=== PATIENT | female | born 1980 | race Caucasian/White ===

== ENCOUNTER 2016-04-21 00:38 | Inpatient (IN) | payer OTHER ==
[~2016-04-21] VITALS: Ht 144.8 cm; Wt 59.0 kg
--- NOTE | ~2016-04-21 | HC ---
[facility] [place] [address] CONSULTATION Name: JEFE DIAZ Room #: 423-1 ADM IN M.R.#: [id number] Admission: 04/21/16 Attend Phys: Rebeca Arciniega MD Discharge: Date of : 76 Report #: [id number] THIS REPORT FOR: //name// CC: Rebeca Shenore Talbert REASON FOR CONSULTATION: I was asked to evaluate concerning fever. HISTORY OF PRESENT ILLNESS: The patient is a 35-year-old with spina bifida and complicated pelvis with radiation therapy for sarcoma ____, required a cystectomy and had a urostomy through her umbilicus for many years. She then developed recurring urinary tract infections and in February was at [facility] where she underwent revision of her urostomy to a standard small bowel urostomy along with hysterectomy. No complications were noted from this. She was hospitalized for about 10 days and then went to rehabilitation and then home. It is noted that she had had bacteriuria since her hospitalization. Two days prior to her admission, she developed increased nausea, vomiting, anorexia, low grade fever. Hospitalized after being on doxycycline for 2 days when that was not helping her. No cough or sputum production. No diarrhea. She does have a colostomy. ALLERGIES: LATEX, LEVOFLOXACIN, GENTAMICIN, SULFA. MEDICATIONS: As noted on her JUN, now on Zosyn and metronidazole. PAST MEDICAL HISTORY, FAMILY HISTORY AND SOCIAL HISTORY: Unchanged from previous consultations and that of her history and physical. REVIEW OF SYSTEMS: As noted above. PHYSICAL EXAMINATION: VITAL SIGNS: She is afebrile, hemodynamically stable. GENERAL: She is alert and cooperative and pleasant, in no acute distress. SKIN: With a small blister to her right heel. No surrounding cellulitis. HEENT: Unremarkable. CHEST: Clear. HEART: Regular. ABDOMEN: Soft, tender in the lower abdomen. Her mid abdominal incision was well approximated. Her urostomy was unremarkable. Her colostomy was unremarkable. She has changes of her spina bifida. LABORATORY STUDIES: Sodium 144, potassium 3.7, bicarbonate of 18, creatinine 0.3, BUN 4. Hemoglobin 8.8, white count 5.5, platelet count 287,000. 13% monocytes, 5% eosinophils, 51% neutrophils. Urinalysis; few wbc's, moderate bacteria. Urine culture with E. coli. ESBL producing organisms sensitive to imipenem, Zosyn, tobramycin, Augmentin, amikacin. Blood cultures negative. Chest x-ray, no acute infiltrates. [address] [address] CONSULTATION Name: JEFE DIAZ Room #: 423-1 ADM IN M.R.#: [id number] Admission: 04/21/16 Attend Phys: Rebeca Arciniega MD Discharge: Date of : 78 Report #: [id number] IMPRESSION: A 35-year-old with spina bifida who is 2 months out from pelvic surgery and ____ urostomy. Now with febrile illness associated with GI upset, back pain consistent with urinary tract infection, although may be related to postoperative complications. PLAN: Recommend continuing current antibiotics with Zosyn and metronidazole. The metronidazole helps with her bowel function while on antibiotics. We will image her abdomen and pelvis with a CAT scan. We will also obtain a urine sample by catheterizing her urostomy. <ELECTRONICALLY SIGNED> By: Ga Nowak MD 04/24/16 0918 1612 2250 Ga Nowak MD /nt
[~2016-04-21 00:38] MED LIST: ACETAMINOPHEN325 M1 PO; ADVAIR HFA 1112 UNIT INH; ALLERGY10 MG PO; APAP500 PO; AZTREONAM1 GM IV; BACTRIM DS TAB1 EACH PO; BENTYL10 MG PO; BONIVA150 MG PO; BUTALB-ACETAMI1 EACH PO; CARDIZEM CD 18180 M3 PO; CATHFLO ACT2 MG/VIA1 IV; CHOLESTYRAMINE P4 GM PO; CIPRO500 MG PO; COMBIVENT INH; COMBIVENT RESPIM4 GM INH; D-20002000 UNIT PO; DILTIAZEM 24HR240 M1 PO; DILTIAZEM 24HR240 MG PO; DIPHENHIST50 MG PO; DUONEB 2.5-0.5 M3 ML INH; FIORICET 50-321 EACH PO; FISH OIL + D31 EACH; FISH OIL 1,001000 M2 PO; FLAGYL500 MG PO; FOSAMAX 35 MG35 MG PO; FOSAMAX 70 MG T70 M1 PO; FOSAMAX 70 MG T70 MG PO; IBUPROFEN 200200 M1 PO; IBUPROFEN 600600 M1 PO; INVANZ 1GM/NS 101 GM IV; INVANZ IV; IRON325 PO; KEPPRA 500 MG500 M1 PO; KEPPRA750 MG PO; MAXIPIME 1 GM/D51 G1 IVPB; MULTIVITAMINS PO; NORCO 5-325 TA1 EACH PO; PERCOCET 5-3251 EACH PO; PROTONIX40 M2 PO; SINGULAIR 10 MG10 M1 PO; TAMSULOSIN HCL0.4 MG PO; VANCOMYCIN HCL 11 G2 IV; VENTOLIN17 GM INH; ZOFRAN 4 MG ORAL4 MG PO; ZOFRAN ODT4 MG PO; ZOFRAN4 MG PO
[2016-04-21 00:43] VITALS: BP 124/83
[2016-04-21 01:30] LABS: HEMATOCRIT 35.5 % (37.0-47.0); HEMOGLOBIN 11.2 gm/dL (12.0-15.0); MCH 24.9 pg (26.0-34.0); MCHC 31.6 % (28.0-37.0); MCV 78.7 fL (80.0-100.0); PLATELET COUNT 358 thou/uL (150-400); RBC 4.51 mil/uL (4.20-5.00); RDW 15.4 % (10.5-14.5); WBC 11.5 thou/uL (4.0-11.0)
[2016-04-21 01:31] LABS: MANUAL DIFF YES
[2016-04-21 01:40] LABS: ALBUMIN 3.6 g/dL (3.4-5.0); CALCIUM 8.6 mg/dL (8.5-10.1); CREATININE 0.5 mg/dL (0.6-1.3); DIRECT BILIRUBIN 0.1 mg/dL (<0.1-0.3); TOTAL BILIRUBIN 0.4 mg/dL (<0.1-1.0); TOTAL PROTEIN 8.2 g/dL (6.4-8.2)
[2016-04-21 01:46] LABS: POTASSIUM 2.9 mmol/L (3.5-5.1)
[2016-04-21 02:17] LABS: TOTAL CELL COUNT 100
[2016-04-21 02:28] LABS: URINE BILIRUBIN 1+ (Negative); URINE BLOOD TRACE (Negative); URINE GLUCOSE-RANDOM* NEGATIVE (Negative); URINE KETONES 2+ (Negative); URINE NITRITE POSITIVE (Negative); URINE PROTEIN (DIPSTICK) TRACE (Negative); URINE SPECIFIC GRAVITY 1.025 (1.003-1.035); URINE UROBILINOGEN 0.2 E.U./dl (0.2-1.0)
[2016-04-21 02:34] LABS: ICTOTEST (BILI CONFIRMATORY) Positive (Negative)
[2016-04-21 02:47] LABS: SQUAMOUS None Seen /LPF (0-3); URINE COLOR BROWN
[2016-04-21 02:48] LABS: CALCIUM OXALATE 0-3 Few /LPF (None Seen); CASTS None Seen /LPF (None Seen); CRYSTALS None Seen /LPF (None Seen); TRANSITIONAL EPITHEL CELL 4-10 Moderate /LPF (None Seen); URINE RBC 0-2 Rare /HPF (0-2); URINE WBC 6-15 Few /HPF (0-5)
[2016-04-21 04:20] VITALS: BP 96/57
[2016-04-21 07:33] VITALS: BP 115/68; BP 93/58
[2016-04-21 16:24] VITALS: BP 98/63
[2016-04-21 20:00] VITALS: BP 109/72
[2016-04-22 04:00] VITALS: BP 103/62
[2016-04-22 06:02] LABS: HEMATOCRIT 27.9 % (37.0-47.0); MCH 25.3 pg (26.0-34.0); MCHC 31.1 % (28.0-37.0); MCV 81.5 fL (80.0-100.0); RBC 3.43 mil/uL (4.20-5.00); RDW 15.7 % (10.5-14.5); WBC 7.2 thou/uL (4.0-11.0)
[2016-04-22 06:16] LABS: CALCIUM 7.5 mg/dL (8.5-10.1); CREATININE 0.3 mg/dL (0.6-1.3); POTASSIUM 3.7 mmol/L (3.5-5.1)
[2016-04-22 06:22] LABS: HEMOGLOBIN 8.7 gm/dL (12.0-15.0)
[2016-04-22 07:53] VITALS: BP 108/68
[2016-04-22 15:49] VITALS: BP 118/71
[2016-04-22 20:00] VITALS: BP 118/78
[2016-04-23 04:00] VITALS: BP 105/66
[2016-04-23 05:27] LABS: HEMATOCRIT 27.4 % (37.0-47.0); HEMOGLOBIN 8.8 gm/dL (12.0-15.0); MCH 25.4 pg (26.0-34.0); MCV 79.1 fL (80.0-100.0); PLATELET COUNT 287 thou/uL (150-400); RBC 3.46 mil/uL (4.20-5.00); RDW 15.7 % (10.5-14.5); WBC 5.5 thou/uL (4.0-11.0)
[2016-04-23 05:40] LABS: MANUAL DIFF YES
[2016-04-23 06:04] LABS: CALCIUM 7.8 mg/dL (8.5-10.1); CREATININE 0.3 mg/dL (0.6-1.3); MAGNESIUM 1.7 mg/dL (1.8-2.4); POTASSIUM 3.4 mmol/L (3.5-5.1)
[2016-04-23 07:39] LABS: ABSOLUTE NEUTROPHILS 2.8 thou/uL (1.4-8.2); ANISOCYTOSIS SLIGHT; MICROCYTES SLIGHT; TOTAL CELL COUNT 100
[2016-04-23 07:44] VITALS: BP 118/81
[2016-04-23 10:59] LABS: MAGNESIUM 1.5 mg/dL (1.8-2.4); POTASSIUM 3.7 mmol/L (3.5-5.1)
[2016-04-23 17:02] VITALS: BP 123/82
[2016-04-23 17:44] LABS: URINE BILIRUBIN NEGATIVE (Negative); URINE BLOOD NEGATIVE (Negative); URINE COLOR YELLOW; URINE GLUCOSE-RANDOM* NEGATIVE (Negative); URINE KETONES NEGATIVE (Negative); URINE LEUKOCYTES-REFLEX NEGATIVE (Negative); URINE PROTEIN (DIPSTICK) NEGATIVE (Negative); URINE UROBILINOGEN 0.2 E.U./dl (0.2-1.0)
[2016-04-23 20:00] VITALS: BP 118/79
[2016-04-24 04:30] VITALS: BP 120/73
[2016-04-24 05:25] LABS: HEMATOCRIT 28.1 % (37.0-47.0); HEMOGLOBIN 9.1 gm/dL (12.0-15.0); MCH 25.5 pg (26.0-34.0); MCHC 32.2 % (28.0-37.0); MCV 79.1 fL (80.0-100.0); PLATELET COUNT 338 thou/uL (150-400); RBC 3.55 mil/uL (4.20-5.00); RDW 15.9 % (10.5-14.5); WBC 5.7 thou/uL (4.0-11.0)
[2016-04-24 05:36] LABS: MANUAL DIFF YES
[2016-04-24 05:46] LABS: CALCIUM 7.9 mg/dL (8.5-10.1); CREATININE 0.4 mg/dL (0.6-1.3); MAGNESIUM 1.7 mg/dL (1.8-2.4); POTASSIUM 3.2 mmol/L (3.5-5.1)
[2016-04-24 06:21] LABS: ABSOLUTE NEUTROPHILS 3.4 thou/uL (1.4-8.2); TOTAL CELL COUNT 100
[2016-04-24 07:31] VITALS: BP 116/70
[2016-04-24 15:36] LABS: MAGNESIUM 1.8 mg/dL (1.8-2.4)
[2016-04-24 16:10] VITALS: BP 122/73
[2016-04-24 20:00] VITALS: BP 113/74
[2016-04-25 04:00] VITALS: BP 101/63
[2016-04-25 05:12] LABS: CALCIUM 8.4 mg/dL (8.5-10.1); CREATININE 0.4 mg/dL (0.6-1.3); MAGNESIUM 1.9 mg/dL (1.8-2.4); POTASSIUM 4.3 mmol/L (3.5-5.1)
[2016-04-25 08:36] VITALS: BP 101/70
[2016-04-25] MEDS ORDERED: VANCOMYCIN100 MG/ML PO (12:32)
[2016-04-25] MEDS ORDERED: AUGMENTIN 875-1 EACH PO (12:32)
[2016-04-25 12:41] VITALS: BP 101/70
== END 2016-04-25 17:21 | disposition home health service (06) | DRG 690 ==
LOC: ER 00:38 → 4E 03:08 → EROBS 03:08 → 4E 03:37
PROVIDERS: Emergency Medicine; Hospitalist; Internal Medicine; Specialist
PROC: 0HDMXZZ Extraction of Right Foot Skin, External Approach (ICD-10-PCS; principal; 2016-04-23)
DX: N39.0 Urinary tract infection, site not specified (principal); G82.20 Paraplegia, unspecified; A04.7 Enterocolitis due to Clostridium difficile; B96.20 Unspecified Escherichia coli [E. coli] as the cause of diseases classified elsewhere; I10 Essential (primary) hypertension; J45.909 Unspecified asthma, uncomplicated; N31.9 Neuromuscular dysfunction of bladder, unspecified; E87.6 Hypokalemia; R51 Headache; M25.774 Osteophyte, right foot; K80.20 Calculus of gallbladder without cholecystitis without obstruction; N83.202 Unspecified ovarian cyst, left side; D63.8 Anemia in other chronic diseases classified elsewhere; Z96.0 Presence of urogenital implants; I70.90 Unspecified atherosclerosis; L89.612 Pressure ulcer of right heel, stage 2; R60.0 Localized edema; G40.909 Epilepsy, unspecified, not intractable, without status epilepticus; Q05.9 Spina bifida, unspecified; Z98.890 Other specified postprocedural states; Z93.3 Colostomy status; Z86.14 Personal history of Methicillin resistant Staphylococcus aureus infection; Z92.3 Personal history of irradiation; Z88.1 Allergy status to other antibiotic agents; Z88.2 Allergy status to sulfonamides; Z89.422 Acquired absence of other left toe(s); Z91.040 Latex allergy status; Z28.21 Immunization not carried out because of patient refusal
CPT/HCPCS: 10183

== ENCOUNTER 2016-05-11 21:51 | Inpatient (IN) | payer OTHER ==
[~2016-05-11] VITALS: Ht 147.3 cm; Wt 59.0 kg
--- NOTE | ~2016-05-11 | HC ---
[facility] [place] [address] CONSULTATION Name: JEFE DIAZ Room #: 423-1 ADM IN M.R.#: [id number] Admission: 05/12/16 Attend Phys: Prashant Tarango MD Discharge: Date of : 76 Report #: [id number] THIS REPORT FOR: //name// CC: Prashant Duarte DATE OF CONSULTATION: 05/12/2016 ATTENDING PHYSICIAN: Prashant Tarango M.D. REASON FOR CONSULTATION: Right upper quadrant abdominal pain. HISTORY OF PRESENT ILLNESS: This is a 35-year-old female patient with a history of spina bifida and paraplegia who has had difficulty with right upper quadrant and right flank pain as well as nausea and vomiting. She underwent creation of an ileal conduit at the [facility] in February 2016, and since that time, she has required numerous antibiotics, which have caused some degree of nausea. She has been admitted for urinary tract infections frequency. At her last admission, she was diagnosed with gallstones; however, during this admission she underwent a CT of the abdomen and pelvis, which showed no gallstones. I have been asked to see the patient for further evaluation and treatment. She does have a complex surgical history, having undergone a recent ileal conduit in February of 2011. Prior to that, she had a urostomy, which she self intubated located at the umbilicus. She also has a colostomy in place. She is wheelchair bound due to her spina bifida. She denies fever or chills. She is uncertain whether the pain is associated with oral intake. PAST MEDICAL HISTORY: Spina bifida, paraplegia, hypertension, seizure disorder, neurogenic bladder, chronic urinary tract infections and headaches. PAST SURGICAL HISTORY: Includes urostomy, ileal conduit, colostomy, numerous back operations, back irradiation for a Dermabond cyst, multiple orthopedic operations, left-sided nephrostomy tube placements for kidney stones. ALLERGIES: LATEX causes anaphylaxis. She is also allergic to Levaquin, which causes a rash and GENTAMICIN. FAMILY HISTORY: Reviewed and noncontributory to this hospitalization. SOCIAL HISTORY: The patient denies any use of tobacco, alcohol or illicit drugs. She lives independently. REVIEW OF SYSTEMS: As per history of present illness. In addition: GENERAL: The patient is wheelchair bound. She denies unintentional weight loss. Denies fever or chills. HEENT: Denies changes in taste, vision, hearing or smell. [address] [address] CONSULTATION Name: JEFE DIAZ Room #: [facility] IN ..#: [id number] Admission: 05/12/16 Attend Phys: Prashant Tarango MD Discharge: Date of : 78 Report #: [id number] RESPIRATORY: Denies shortness of breath, COPD or asthma. CARDIOVASCULAR: Denies chest pain or palpitations. GASTROINTESTINAL: As per history of present illness. Her colostomy has been functional. GENITOURINARY: Ileal conduit in place since February 2016 (the electronic medical record reports showed March 2016). NEUROLOGIC: History of spina bifida and paraplegia. PSYCHIATRIC: Denies depression, anxiety or suicidal ideations. SKIN/INTEGUMENTARY: Denies new skin lesions, rashes or moles. Denies jaundice. ENDOCRINE: Denies polydipsia, polyuria, heat or cold intolerance. HEMATOLOGIC: Denies easy bleeding or bruising. Denies anemia. All other review of systems is negative. PHYSICAL EXAMINATION: VITAL SIGNS: Temperature 97.5, blood pressure 124/77, pulse 100-125, respirations 18. GENERAL: This is a 35-year-old female patient in no acute distress. She is alert and oriented x 4. She is in no acute distress. HEENT: Atraumatic, normocephalic with moist mucosal membranes. Oropharynx is clear. NECK: Supple. Trachea is midline. CHEST: Clear bilaterally. CARDIOVASCULAR: Sinus tachycardia, S1, S2. ABDOMEN: Soft and mildly tender to palpation in the right upper quadrant. She has a negative Laguerre's sign, no rebound or guarding. No palpable masses. A midline incisional scar is seen. She has no overlying erythema or edema. Her ileal conduit is intact and functional on the right. In the left abdomen, her colostomy is pink, patent and functional. GENITOURINARY: Deferred. EXTREMITIES: No cyanosis. NEUROLOGIC: Cranial nerves 2-12 grossly intact. PSYCHIATRIC: Normal mood and affect. SKIN/INTEGUMENTARY: No acute inflammatory changes, rashes, lesions or jaundice is present. LABORATORY DATA: CBC from last night shows a white blood cell count of 11.1, hemoglobin 10.0, hematocrit 31.4 and platelets 394 with 82% segmented neutrophils. Her comprehensive metabolic profile from this morning shows a sodium of 139, potassium 3.6, chloride 109, CO2 21, BUN 14, creatinine 0.5 and glucose 90 with normal liver function tests. Her lipase yesterday was normal at 80. Lactic acid was 1.1. Urinalysis showed positive nitrites, 2+ ketones, trace glucose, 2+ protein. RADIOLOGIC STUDIES: CT of the abdomen and pelvis without contrast showed cholelithiasis without changes of acute cholecystitis. This was further studies [address] [address] CONSULTATION Name: JEFE DIAZ Room #: 423-1 ADM IN M.R.#: [id number] Admission: 05/12/16 Attend Phys: Prashant Tarango MD Discharge: Date of : 78 Report #: [id number] with an ultrasound, which showed cholelithiasis without sonographic evidence for acute cholecystitis. Her common bile duct was 3.2 mm in size. IMPRESSION AND PLAN: This is a 35-year-old female with a complex medical and surgical history, also with a recent ileal conduit who has right upper quadrant abdominal pain and radiographically evidence for cholelithiasis without evidence for acute cholecystitis. Her symptoms do not always occur postprandially, and as such, she has a typical biliary colic. She does have pain in the right upper quadrant and right flank, which is consistent with symptomatic cholelithiasis. The pathophysiology and natural history of cholelithiasis was discussed in detail with the patient. In addition, we discussed the treatment alternatives and surgical options. We also discussed the risks, benefits and expectations of cholecystectomy. The patient is not in favor of surgery at this time and would like to try medical therapy given her recent operations and a complex surgical history. This is a reasonable option. She will be placed on ursodiol to help dissolve the gallstones. The risks, benefits and expectations of medical therapy were discussed with the patient as well. Should she require cholecystectomy or develop acute cholecystitis, this would just be served at the [facility] where her ileal conduit was recently performed given its close proximity to the gallbladder. The patient agrees. My recommendation is that she can be seen by General Surgery at [facility] to arrange for this sometime in the future if her medical therapy is ineffective or not well tolerated. The patient understands and agrees. She will take a low fat/no fat diet and will start ursodiol soon. I sincerely appreciate the opportunity to participate and take care of this patient and will leave further recommendations and orders in the electronic medical record as appropriate. Thank you very much. <ELECTRONICALLY SIGNED> By: Marko Duarte MD, FACS 05/13/16 0859 0013 0114 Marko Duarte MD, FACS /nt
--- NOTE | ~2016-05-11 | 2DMMODE ---
[facility] [place] [address] 2 D/M-MODE ECHOCARDIOGRAM Name: JEFE DIAZ Room #: 423-1 ADM IN M.R.#: [id number] Admission: 05/12/16 Attend Phys: Larry Lira Discharge: Date of : 76 Date of Service: 05/14/16 1517 Report #: [id number] THIS REPORT FOR: //name// Transthoracic Echocardiography Ordering physician: Delmy Wray Referring physician: Marko Duarte Theodore M. Hoden, Brianna Broadcast Engineer: MARIAH Mann Indications/History: Tachycardia, HTN. BP: 125 / HR: 135bpm Height: 57in Weight: 129.7lb 80 Study data: M-mode, complete 2D, complete spectral Doppler, and color Doppler. Location: Bedside. Routine. Image quality was adequate. The study was technically limited due to poor acoustic window availability and restricted patient mobility. Intravenous contrast (Definity) was administered. 2D measurements Normal Normal LVID ED 36-57 IVS ED 6-11 LVID ES 23-40 LVPW ED 6-11 LA volume index 16-28 AoRoot diam ED 21-37 LVOT diameter 18-23 Findings: Left ventricle: The cavity size was normal. Wall thickness was normal. Systolic function was normal. The estimated ejection fraction was in the range of 55% to 60%. Wall motion was normal. Right ventricle: The cavity size was normal. Systolic function was normal. Right atrium: The atrium was normal in size. Left atrium: The atrium was normal in size. Aortic valve: Not visualized. Doppler: There was no stenosis. No regurgitation. Peak velocity: 119.8cm/s [address] [address] 2 D/M-MODE ECHOCARDIOGRAM Name: JEFE DIAZ Room #: 423-1 [facility] IN M.R.#: [id number] Admission: 05/12/16 Attend Phys: Prashant JeongIra Mckeonma Larry Discharge: Date of : 76 Date of Service: 05/14/161516 Report #: [id number] ([id number]). Mitral valve: Not visualized. Doppler: There was no evidence for stenosis. No regurgitation. Tricuspid valve: Structurally normal valve. Doppler: There was no evidence for stenosis. No regurgitation. Pulmonic valve: Structurally normal valve. Doppler: There was no evidence for stenosis. No regurgitation. Pericardium: There was no pericardial effusion. Aorta: Aortic root: The aortic root was normal in size. Pulmonary artery: Pressure could not be reliably determined due to minimal or absent tricuspid insufficiency jet, but pulmonary hypertension was not suggested. Diastolic function: The study is not technically sufficient to allow evaluation of LV diastolic function. Systemic veins: Inferior vena cava: The vessel was normal in size; the respirophasic diameter changes were in the normal range (= 50%). Conclusions 1. Technically difficult study. 2. Definity was used for better visualization of endothelial border. 1. Left ventricle: Systolic function was normal. The estimated ejection fraction was in the range of 55% to 60%. Wall motion was normal. 2. Aortic valve: Not visualized. There was no stenosis. No regurgitation. 3. Mitral valve: Not visualized. No regurgitation. 4. Pericardium, extracardiac: There was no pericardial effusion. <ELECTRONICALLY SIGNED> By: Rober Betts MD, [facility] 05/14/16 1714 1517 1714 Rober Betts MD, FACC /gordy
--- NOTE | ~2016-05-11 | EKG ---
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 : 1980 Requested By: Prashant Tarango Order Number: [id number] MD: Rober Betts Measurements Intervals [place] Rate: 114 P: 39 NC: 152 QRS: 38 QRSD: 87 T: 11 QT: 350 QTc: 483 Interpretive Statements Sinus tachycardia Abnormal R-wave progression, early transition Borderline T abnormalities, anterior leads Baseline wander in lead(s) V5 No previous ECG available for comparison Electronically Signed On 05-14-2016 8:54:29 INTERNATIONAL CONTROLLER by Rober Betts [email or web address] <ELECTRONICALLY SIGNED> By: Rober Betts MD, [facility] 05/14/16 0854 1105 1105 Rober Betts MD, [facility] /EPI
--- NOTE | ~2016-05-11 | EKG ---
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: Jake DUBOIS : 1980 Requested By: Delmy Wray Order Number: [id number] MD: Rober Betts Measurements Intervals [place] Rate: 116 P: 34 GA: 149 QRS: 42 QRSD: 80 T: 21 QT: 338 QTc: 470 Interpretive Statements Sinus tachycardia Abnormal R-wave progression, early transition Borderline T abnormalities, anterior leads No previous ECG available for comparison Electronically Signed On 05-14-2016 9:11:19 OSD CLERK by Rober Betts [email or web address] <ELECTRONICALLY SIGNED> By: Rober Betts MD, [facility] 05/14/1611 Rober Betts MD, [facility] /EPI
[~2016-05-11 21:51] MED LIST changes: +AUGMENTIN 875-1 EACH PO; +VANCOMYCIN100 MG/ML PO
[2016-05-11 21:53] VITALS: BP 148/97
[2016-05-11 22:29] LABS: HEMATOCRIT 31.4 % (37.0-47.0); MCH 24.4 pg (26.0-34.0); MCHC 31.9 % (28.0-37.0); MCV 76.4 fL (80.0-100.0); PLATELET COUNT 394 thou/uL (150-400); WBC 11.1 thou/uL (4.0-11.0)
[2016-05-11 22:32] LABS: MANUAL DIFF YES
[2016-05-11 22:36] LABS: CALCIUM 8.8 mg/dL (8.5-10.1); CREATININE 0.6 mg/dL (0.6-1.3); POTASSIUM 3.7 mmol/L (3.5-5.1)
[2016-05-11 22:42] LABS: ALBUMIN 3.8 g/dL (3.4-5.0); TOTAL BILIRUBIN 0.2 mg/dL (<0.1-1.0); TOTAL PROTEIN 8.6 g/dL (6.4-8.2)
[2016-05-11 23:01] LABS: URINE BILIRUBIN NEGATIVE (Negative); URINE BLOOD NEGATIVE (Negative); URINE GLUCOSE-RANDOM* TRACE (Negative); URINE KETONES 2+ (Negative); URINE LEUKOCYTES-REFLEX NEGATIVE (Negative); URINE PROTEIN (DIPSTICK) 2+ (Negative); URINE SPECIFIC GRAVITY 1.015 (1.003-1.035); URINE UROBILINOGEN 0.2 E.U./dl (0.2-1.0)
[2016-05-11 23:17] LABS: URINE COLOR YELLOW/ORANGE
[2016-05-11 23:34] LABS: CASTS None Seen /LPF (None Seen); CRYSTALS None Seen /LPF (None Seen); SQUAMOUS None Seen /LPF (0-3); URINE RBC 0-2 Rare /HPF (0-2); URINE WBC-REFLEX 0-5 Rare /HPF (0-5)
[2016-05-11 23:54] LABS: ABSOLUTE NEUTROPHILS 9.1 thou/uL (1.4-8.2); TOTAL CELL COUNT 100
[2016-05-11 23:55] LABS: ANISOCYTOSIS 3+; MACROCYTES 1+; MICROCYTES 2+
[2016-05-12 02:09] VITALS: BP 123/76
[2016-05-12 07:25] VITALS: BP 124/77
[2016-05-12 09:00] LABS: ALBUMIN 2.8 g/dL (3.4-5.0); CALCIUM 7.8 mg/dL (8.5-10.1); CREATININE 0.5 mg/dL (0.6-1.3); POTASSIUM 3.6 mmol/L (3.5-5.1); TOTAL BILIRUBIN 0.3 mg/dL (<0.1-1.0); TOTAL PROTEIN 6.2 g/dL (6.4-8.2)
[2016-05-12 16:41] VITALS: BP 117/75
[2016-05-12 20:00] VITALS: BP 114/75
[2016-05-13 04:00] VITALS: BP 105/64
[2016-05-13 08:43] VITALS: BP 116/72
[2016-05-13 15:51] VITALS: BP 141/96
[2016-05-13 20:00] VITALS: BP 131/87
[2016-05-14 04:42] VITALS: BP 95/68
[2016-05-14 08:05] VITALS: BP 125/80
[2016-05-14 13:05] VITALS: BP 125/80
[2016-05-14 16:20] VITALS: BP 120/81
[2016-05-14 20:00] VITALS: BP 128/90
[2016-05-15 04:42] VITALS: BP 116/74
[2016-05-15 08:00] VITALS: BP 107/74
[2016-05-15] MEDS ORDERED: NORCO 5-325 TA1 EACH PO (10:24)
[2016-05-15] MEDS ORDERED: FLAGYL500 MG PO (10:24)
[2016-05-15] MEDS ORDERED: AUGMENTIN 875-1 EACH PO (10:24)
[2016-05-15] MEDS ORDERED: CARDIZEM CD240 MG PO (10:24)
[2016-05-15] MEDS ORDERED: XANAX 0.5 MG0.5 MG PO (10:24)
[2016-05-15] MEDS ORDERED: URSODIOL300 MG PO (10:49)
== END 2016-05-15 17:20 | disposition home or self-care (01) | DRG 445 ==
LOC: ER 21:51 → EROBS 05-12 01:01 → 4E 05-12 01:01
PROVIDERS: Nurse Practitioner; Physician Assistant
DX: K80.20 Calculus of gallbladder without cholecystitis without obstruction (principal); G82.20 Paraplegia, unspecified; N39.0 Urinary tract infection, site not specified; G40.909 Epilepsy, unspecified, not intractable, without status epilepticus; E78.5 Hyperlipidemia, unspecified; I10 Essential (primary) hypertension; R00.0 Tachycardia, unspecified; F41.9 Anxiety disorder, unspecified; J45.909 Unspecified asthma, uncomplicated; Q05.9 Spina bifida, unspecified; Z91.040 Latex allergy status; Z88.8 Allergy status to other drugs, medicaments and biological substances; Z87.442 Personal history of urinary calculi; Z87.440 Personal history of urinary (tract) infections; Z98.890 Other specified postprocedural states; Z79.899 Other long term (current) drug therapy; Z90.710 Acquired absence of both cervix and uterus; Z93.3 Colostomy status
CPT/HCPCS: 10183

== ENCOUNTER 2016-09-17 10:14 | Inpatient (IN) | payer OTHER ==
[~2016-09-17] VITALS: Ht 144.8 cm; Wt 57.6 kg
--- NOTE | ~2016-09-17 | EKG ---
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
--- NOTE | ~2016-09-17 | HC ---
[facility] [place] [address] CONSULTATION Name: JEFE DIAZ Room #: 441-P ADM IN M.R.#: [id number] Admission: 09/17/16 Attend Phys: Kendall Hammond MD Discharge: Date of : 76 Report #: [id number] THIS REPORT FOR: //name// CC: Kendall Hammond Jairo Talbert DATE OF SERVICE: 09/18/2016 DATE OF SERVICE: 09/18/2016. PERSONAL PHYSICIAN: Kendall Hammond MD CHIEF COMPLAINT: Buttock ulcer. HISTORY OF PRESENT ILLNESS: This is a 36-year-old white female with a history of spina bifida who has had numerous back and abdominal surgeries. The patient is currently admitted for urinary tract infection. The patient states prior to admission, she was having fevers and chills. The patient had been started on an outpatient Augmentin. The patient, however, has a history of recurrent ulcerations in her sacrococcygeal gluteal area, and I have been asked to see her for that at this time. The patient states she initially had 2 ulcerations, but one of them has healed recently. PAST MEDICAL HISTORY: Significant for seizure disorder, hypertension, spina bifida with myelomeningocele, asthma, diverting colostomy, ileal conduit, paraplegia secondary to spina bifida, history of pressure ulcers in the sacrococcygeal gluteal area as well as pressure ulcer on her right leg, which has now healed. CURRENT MEDICATIONS: Multiple, I reviewed the patient's medication list. DRUG ALLERGIES: GENTAMICIN, LEVAQUIN, and LATEX. SOCIAL HISTORY: The patient does not smoke. Drinks alcohol occasionally. Does not do illicit drugs. FAMILY HISTORY: Not pertinent to current medical condition. REVIEW OF SYSTEMS: CONSTITUTIONAL: The patient had fevers and chills prior to admission to the hospital. He has now resolved. NEUROLOGIC: The patient denies isolated weakness in arms or legs, complains of overall generalized weakness. The patient is paralyzed in lower extremities, is insensate in his extremities. EYES: No complaints. ENT: No complaints. [address] [address] CONSULTATION Name: JEFE DIAZ Room #: 441-P [facility] IN .R.#: [id number] Admission: 09/17/16 Attend Phys: Kendall Hammond MD Discharge: Date of : 78 Report #: [id number] CARDIAC: The patient denies chest pain, palpitations or peripheral edema. RESPIRATORY: The patient denies shortness breath, cough or wheezes. GASTROINTESTINAL: The patient had mild nausea, but no associated vomiting or diarrhea. GENITOURINARY: The patient is currently being treated for complicated urinary tract infection. MUSCULOSKELETAL: No complaints. SKIN: The patient has a stage 2 coccygeal decubitus ulcer in her left gluteal region. PHYSICAL EXAMINATION: VITAL SIGNS: Stable. The patient is afebrile. GENERAL: This is an alert and oriented times 3, pleasant white female who is in no acute distress. HEENT: Normocephalic, atraumatic. Mucous membranes are somewhat dry. Pupils are round. Sclerae are white. NECK: Without JVD or masses. LUNGS: Clear. HEART: Regular, without murmur. ABDOMEN: Soft, nontender. There is ileal conduit and colostomy, both in place and functioning well. EXTREMITIES: The patient has no movement of lower extremities. Bilateral heels are intact without open ulcerations. He has trace edema in the lower extremities. Distal neurovascular is intact. SKIN: Evaluation of sacrococcygeal and gluteal region reveals a superficial stage 2 decubitus ulcer in the left gluteal region, which is clean and granulating without signs of infection. Periulcer is intact. There is no significant tunneling, tracking or undermining. There is minimal amount of serosanguineous drainage without odor. NEUROLOGIC: Cranial nerves 2-12 are grossly intact. The patient is paralyzed in her lower extremities. LABORATORY VALUES: White count 17.9, hemoglobin 8.0. Prealbumin is low at 8.1. IMPRESSION: 1. Stage 2 decubitus ulcer, left superior gluteal region present on admission. 2. Severe protein-calorie malnutrition, albumin 8.1. 3. Spina bifida with paralysis. 4. Complicated urinary tract infection. 5. Status post colostomy. 6. Status post ileostomy. 7. Generalized debility. PLAN: At this time, we will continue with Optifoam dressings to this site, which has worked well for the patient in the past. We will make sure she is on an air loss mattress and turned every 2 hours. The patient will continue with [address] [address] CONSULTATION Name: JEFE DIAZ Room #: 441-P ADM IN M.R.#: [id number] Admission: 09/17/16 Attend Phys: Kendall Hammond MD Discharge: Date of : 76 Report #: [id number] Tubigrip on the lower extremities for control of edema. We will try to maximize the patient's oral supplementation of protein as best as we can to assist in the healing process. We will also make sure we start to maximize the patient's physical and occupational therapy for strengthening. I appreciate the ability to consult. By: 1801 0032 Yuri Romano MD /nt
--- NOTE | ~2016-09-17 | HC ---
[facility] [place] [address] CONSULTATION Name: JEFE DIAZ Room #: 441-P [facility] IN M.R.#: [id number] Admission: 09/17/16 Attend Phys: Kendall Hammond MD Discharge: 09/30/16 Date of : 76 Report #: [id number] THIS REPORT FOR: //name// CC: Kendall Shenore Talbert DATE OF SERVICE: 09/26/2016 CHIEF COMPLAINT: Pelvic abscess. HISTORY OF PRESENT ILLNESS: The patient is a 36-year-old female with complex medical history including spina bifida, ileal conduit placement, spinal fixation with fixator device. She is known to the general surgery service for prior evaluation for potential gallbladder issues. The patient also has history of a large sacral decubitus ulcer which is now healed. More recently, the patient was admitted with urinary tract infection with antibiotic treatment. Her fever curve improved, but her leukocytosis persisted. Therefore, CT scan of the abdomen and pelvis was obtained. This demonstrated interval development of an elongated fluid collection extending from the soft tissues of the right posterior pelvis and gluteal region consistent with abscess. This extended from the inferior margin of the sacrum caudally to the right posterior perineal region. General surgery was therefore consulted for potential intervention. PAST MEDICAL HISTORY: Positive for paraplegia, spina bifida, hypertension, seizure disorder, neurogenic bladder, chronic urinary tract infections, headaches, sacral decubitus ulcer. A significant portion of her medical care and surgical care has been at [facility]. PAST SURGICAL HISTORY: Includes urostomy, ileal conduit, colostomy, numerous spinal operations with internal fixation, back irradiation for dermoid cyst, multiple orthopedic operations, left-sided nephrostomy tube placement for kidney stones. ALLERGIES: Include LATEX, LEVAQUIN, and GENTAMICIN. PAST SOCIAL HISTORY: The patient denies tobacco, ETOH or drug use. The patient is wheelchair bound but she does live independently. REVIEW OF SYSTEMS: CONSTITUTIONAL: Positive for fevers and chills, now resolved. NEUROLOGIC: Positive for general lethargy and weakness. She does have paraplegia for the lower extremities. OCULAR: No diplopia or visual change. HEENT: No dysphagia or odynophagia. CARDIOVASCULAR: No chest pain or palpitation. PULMONARY: No hemoptysis or shortness of breath. GASTROINTESTINAL: Mild nausea, no significant abdominal pain, no nausea, vomiting or hematemesis. GENITOURINARY: Positive for complicated urinary tract infection associated with ileal conduit. MUSCULOSKELETAL: [facility] [address] [place] [address] CONSULTATION Name: JEFE DIAZ Room #: 441-P [facility] IN M.R.#: [id number] Admission: 09/17/16 Attend Phys: Kendall Hammond MD Discharge: 09/30/16 Date of : 76 Report #: [id number] extremity paraplegia. CUTANEOUS: History of previous extensive decubitus ulcer treated with local wound care. ENDOCRINE: No heat or cold intolerance. PSYCHIATRIC: No depression or anxiety. PHYSICAL EXAMINATION: GENERAL: The patient is awake, alert and oriented x 3. She is anxious. She is afebrile and stable. She does converse appropriately with normal affect. HEENT: Head is atraumatic and normocephalic. No icterus is appreciated. Mucosae are pink and moist. NECK: Without jugular venous distention. Neck is supple and nontender. LUNGS: Clear to auscultation. No respiratory distress. HEART: Regular, without murmur. ABDOMEN: Soft, nondistended and nontender. Ileal conduit well pouched without surrounding erythema. Colostomy also well pouched without surrounding erythema or crepitus. No sign of acute cellulitis. EXTREMITIES: With lower extremity paralysis, trace edema, stage II sacral ulcer involving the left gluteal soft tissue and skin. No active obvious infection superficially. Granulation tissue noted. No obvious pocket or tunnel is identified. LABORATORY STUDIES: Reviewed. White count of 14.5, improved from 18.5 yesterday, hemoglobin of 11, hematocrit of 35, platelets of 626, creatinine is 0.4, potassium of 4. Most recent total bilirubin 0.2. CT scan of the abdomen and pelvis from September 25 is reviewed with images. This showed interval development of the elongated fluid collection as described in the history of the present illness. Cholelithiasis was also noted. No obvious acute cholecystitis. IMPRESSION: 1. 36-year-old female with history of spina bifida and multiple prior operations including extensive spinal instrumentation, colostomy, ileal conduit and prior sacral ulcer, which is essentially closed and is now stage II. Interval development of pelvic abscess which is in proximity to the sacral ulcer, but which extends deep into the pelvis, persistent leukocytosis despite improved fevers during treatment of complicated urinary tract infection. Given her extensive history and difficulty with general anesthetic, as well as potential difficulties with positioning, would recommend consultation of interventional radiology for percutaneous drainage of the pelvic abscess using image guidance. Detailed discussion of this potential plan held with the patient's family and the patient herself at the bedside. They are in agreement with this plan. 2. Have consulted the interventional radiologist to discuss the case this morning. 3. Will continue to follow closely and make further recommendations based upon clinical status. <ELECTRONICALLY SIGNED> By: Boubacar Jefferson MD 10/01/16 1144 1655 1451 Boubacar Jefferson MD /marline
--- NOTE | ~2016-09-17 | HC ---
[facility] [place] [address] CONSULTATION Name: JEFE DIAZ Room #: 441-P ADM IN M.R.#: [id number] Admission: 09/17/16 Attend Phys: Kendall Hammond MD Discharge: Date of : 76 Report #: [id number] THIS REPORT FOR: //name// CC: Kendall Talbert REASON FOR CONSULTATION: I was asked to evaluate the patient concerning fever, left-sided back pain and suspected complicated urinary tract infection. HISTORY OF PRESENT ILLNESS: The patient is a 36-year-old with spina bifida and a long history of bladder reconstruction surgery from childhood. This malfunctioned and required a revision surgery in February at [facility], where now she has an ileal conduit. She developed malaise and low-grade fever at the end of last week. Urine studies were obtained and placed on nitrofurantoin. She did not improve and by yesterday was having fever. That increased along with left flank pain. Admitted today with temperature of 102 degrees. She has had chills. No nausea or vomiting. Her colostomy is functioning well. She still has some rectal drainage. She has a small sacral decubitus. Urine from her ostomy has been clear. No cough or sputum production. Outpatient urine culture grew E. coli. I have not seen the sensitivity report, but after discussion with primary medicine, it seemed like it was sensitive to meropenem. She was, therefore, started on meropenem, feels better this afternoon after receiving some fluids. ALLERGIES: LATEX, LEVAQUIN and GENTAMICIN. MEDICATIONS: As noted on JUN, now on meropenem. PAST MEDICAL HISTORY: Seizure disorder, hypertension, spina bifida with myelomeningocele. She has had dermoid cyst and radiation therapy, diverting colostomy, ileal conduit, paraplegia, kidney stones, recurrent urinary tract infections, decubiti, headaches, hypertension and asthma. FAMILY HISTORY: Noncontributory. SOCIAL HISTORY: Nonsmoker, no significant alcohol intake. 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 REVIEW OF SYSTEMS: As noted above. PHYSICAL EXAMINATION: VITAL SIGNS: Maximum temperature is 102.7 degrees, hemodynamically stable. She was alert and cooperative and pleasant, in no acute distress. Room air saturation was 98%. HEENT: Unremarkable. CHEST: Clear. HEART: Regular. [facility] [address] [place] [address] CONSULTATION Name: JEFE DIAZ Room #: 441-P [facility] IN M.R.#: [id number] Admission: 09/17/16 Attend Phys: Kendall Hammond MD Discharge: Date of : 76 Report #: [id number] ABDOMEN: Soft. GENITOURINARY: Her ostomies were unremarkable. She had good urine output. SKIN: She had a small sacral decubitus, which was clean. No cellulitis. RECTAL: Had a moderate amount of anal drainage. LABORATORY STUDIES: Hemoglobin 8.2, white count 19.8, platelet count 401,000, 85% segs and no bands. Lactate 0.8, creatinine 0.3. Urinalysis fairly unremarkable with protein at 2+, 6-15 wbc's, no rbc's and moderate bacteria. IMPRESSION AND PLAN: A 36-year-old with spina bifida, complicated urinary tract with suspected left pyelonephritis, with unremarkable urinalysis and evidence of bacteriuria with Escherichia coli, fairly drug resistant. Would recommend continuing meropenem. We will also add metronidazole for her anal drainage. She does get some proctitis. Continue Mepilex to sacral wound. Image her abdomen with ultrasound to assess her for ureteral obstruction. <ELECTRONICALLY SIGNED> By: Ga Nowak MD 09/18/16 1845 1803 0704 Ga Nowak MD /nt
[~2016-09-17 10:14] MED LIST changes: +CARDIZEM CD240 MG PO; +URSODIOL300 MG PO; +XANAX 0.5 MG0.5 MG PO
[2016-09-17 10:17] VITALS: BP 123/76
[2016-09-17 13:36] LABS: HEMATOCRIT 26.1 % (37.0-47.0); HEMOGLOBIN 8.2 gm/dL (12.0-15.0); MCHC 31.6 g/dL (28.0-37.0); PLATELET COUNT 401 thou/uL (150-400); RBC 3.58 mil/uL (4.20-5.00); RDW 17.3 % (10.5-14.5); URINE BILIRUBIN NEGATIVE (Negative); URINE BLOOD NEGATIVE (Negative); URINE COLOR YELLOW; URINE GLUCOSE-RANDOM* NEGATIVE (Negative); URINE KETONES 1+ (Negative); URINE LEUKOCYTES-REFLEX TRACE (Negative); URINE PROTEIN (DIPSTICK) 2+ (Negative); URINE UROBILINOGEN 0.2 E.U./dl (0.2-1.0); WBC 19.8 thou/uL (4.0-11.0)
[2016-09-17 13:39] LABS: MANUAL DIFF YES
[2016-09-17 13:42] LABS: SQUAMOUS 0-3 Few /LPF (0-3); URINE WBC-REFLEX 6-15 Few /HPF (0-5)
[2016-09-17 13:43] LABS: URINE RBC None Seen /HPF (0-2)
[2016-09-17 13:44] LABS: CASTS None Seen /LPF (None Seen); CRYSTALS None Seen /LPF (None Seen)
[2016-09-17 13:48] LABS: CALCIUM 8.2 mg/dL (8.5-10.1); CREATININE 0.3 mg/dL (0.6-1.0); POTASSIUM 3.1 mmol/L (3.5-5.1)
[2016-09-17 14:08] LABS: ABSOLUTE NEUTROPHILS 16.8 thou/uL (1.4-8.2); ANISOCYTOSIS 1+; HYPOCHROMASIA 1+; MACROCYTES 1+; TOTAL CELL COUNT 100
[2016-09-17 14:09] LABS: POLYCHROMASIA OCCASIONAL
[2016-09-17 14:59] VITALS: BP 136/68
[2016-09-17 16:00] VITALS: BP 110/44
[2016-09-17 20:00] VITALS: BP 119/61
[2016-09-18 04:30] VITALS: BP 108/61
[2016-09-18 07:35] VITALS: BP 108/61
[2016-09-18 08:22] VITALS: BP 113/58
[2016-09-18 10:41] LABS: HEMATOCRIT 25.4 % (37.0-47.0); MCH 22.9 pg (26.0-34.0); MCHC 31.4 g/dL (28.0-37.0); RBC 3.48 mil/uL (4.20-5.00); RDW 16.7 % (10.5-14.5); WBC 17.9 thou/uL (4.0-11.0)
[2016-09-18 11:06] LABS: CALCIUM 7.4 mg/dL (8.5-10.1); CREATININE 0.3 mg/dL (0.6-1.0)
[2016-09-18 11:08] LABS: POTASSIUM 2.5 mmol/L (3.5-5.1)
[2016-09-18 11:33] VITALS: BP 113/58
[2016-09-18 16:38] VITALS: BP 112/59
[2016-09-18 19:49] VITALS: BP 111/58
[2016-09-19 04:30] VITALS: BP 107/60
[2016-09-19 07:46] LABS: MCV 72.5 fL (80.0-100.0)
[2016-09-19 07:47] LABS: MCH 23.1 pg (26.0-34.0); MCHC 31.9 g/dL (28.0-37.0); RBC 2.9 mil/uL (4.20-5.00); RDW 17.1 % (10.5-14.5); WBC 16.6 thou/uL (4.0-11.0)
[2016-09-19 07:52] LABS: CALCIUM 7.8 mg/dL (8.5-10.1); CREATININE 0.4 mg/dL (0.6-1.0); POTASSIUM 3.2 mmol/L (3.5-5.1)
[2016-09-19 07:54] LABS: HEMOGLOBIN 6.7 gm/dL (12.0-15.0)
[2016-09-19 09:38] VITALS: BP 96/57
[2016-09-19 13:58] VITALS: BP 108/62; BP 109/70
[2016-09-19 15:45] VITALS: BP 108/62
[2016-09-19 16:38] VITALS: BP 100/64; BP 103/63; BP 97/62
[2016-09-19 20:04] VITALS: BP 98/61
[2016-09-20 05:45] VITALS: BP 104/61
[2016-09-20 05:56] LABS: HEMATOCRIT 31.6 % (37.0-47.0); MCH 25.1 pg (26.0-34.0); MCHC 32.7 g/dL (28.0-37.0); MCV 76.7 fL (80.0-100.0); RBC 4.12 mil/uL (4.20-5.00); RDW 19.3 % (10.5-14.5); WBC 18.9 thou/uL (4.0-11.0)
[2016-09-20 05:58] LABS: HEMOGLOBIN 10.3 gm/dL (12.0-15.0)
[2016-09-20 06:03] LABS: CALCIUM 7.4 mg/dL (8.5-10.1); CREATININE 0.4 mg/dL (0.6-1.0); MAGNESIUM 1.7 mg/dL (1.8-2.4)
[2016-09-20 06:25] LABS: POTASSIUM 2.9 mmol/L (3.5-5.1)
[2016-09-20 07:31] VITALS: BP 106/46
[2016-09-20 16:41] VITALS: BP 108/68
[2016-09-20 19:56] VITALS: BP 107/64
[2016-09-21 05:14] VITALS: BP 89/65
[2016-09-21 05:49] LABS: HEMATOCRIT 30.9 % (37.0-47.0); HEMOGLOBIN 10.1 gm/dL (12.0-15.0); MCH 25.4 pg (26.0-34.0); MCHC 32.9 g/dL (28.0-37.0); MCV 77.2 fL (80.0-100.0); RDW 19.7 % (10.5-14.5); WBC 17.5 thou/uL (4.0-11.0)
[2016-09-21 06:00] LABS: CALCIUM 7.8 mg/dL (8.5-10.1); CREATININE 0.3 mg/dL (0.6-1.0); MAGNESIUM 1.7 mg/dL (1.8-2.4); POTASSIUM 3.8 mmol/L (3.5-5.1)
[2016-09-21 08:16] VITALS: BP 94/57
[2016-09-21 16:12] VITALS: BP 107/65
[2016-09-21 20:05] VITALS: BP 114/78
[2016-09-22 03:00] VITALS: BP 95/58
[2016-09-22 07:39] VITALS: BP 99/55
[2016-09-22 16:11] VITALS: BP 110/64
[2016-09-22 19:43] VITALS: BP 110/66
[2016-09-23 01:15] VITALS: BP 110/65
[2016-09-23 05:01] VITALS: BP 89/53
[2016-09-23 05:53] LABS: HEMATOCRIT 31.1 % (37.0-47.0); MCH 25.4 pg (26.0-34.0); MCHC 32.2 g/dL (28.0-37.0); MCV 78.9 fL (80.0-100.0); RBC 3.94 mil/uL (4.20-5.00); RDW 20.9 % (10.5-14.5); WBC 19.7 thou/uL (4.0-11.0)
[2016-09-23 06:07] LABS: CALCIUM 7.6 mg/dL (8.5-10.1); CREATININE 0.4 mg/dL (0.6-1.0); POTASSIUM 3.1 mmol/L (3.5-5.1)
[2016-09-23 08:00] VITALS: BP 106/66
[2016-09-23 12:27] LABS: URINE BILIRUBIN NEGATIVE (Negative); URINE BLOOD NEGATIVE (Negative); URINE COLOR YELLOW; URINE GLUCOSE-RANDOM* NEGATIVE (Negative); URINE KETONES NEGATIVE (Negative); URINE LEUKOCYTES-REFLEX NEGATIVE (Negative); URINE PROTEIN (DIPSTICK) NEGATIVE (Negative); URINE UROBILINOGEN 0.2 E.U./dl (0.2-1.0)
[2016-09-23 16:00] VITALS: BP 114/67
[2016-09-23 20:20] VITALS: BP 94/54
[2016-09-24 03:20] VITALS: BP 93/59
[2016-09-24 07:33] LABS: HEMATOCRIT 33.6 % (37.0-47.0); HEMOGLOBIN 10.7 gm/dL (12.0-15.0); MCV 78.1 fL (80.0-100.0); RBC 4.3 mil/uL (4.20-5.00); RDW 21.7 % (10.5-14.5); WBC 16.6 thou/uL (4.0-11.0)
[2016-09-24 07:47] LABS: CALCIUM 7.9 mg/dL (8.5-10.1); CREATININE 0.4 mg/dL (0.6-1.0); POTASSIUM 3.7 mmol/L (3.5-5.1)
[2016-09-24 08:30] VITALS: BP 98/60
[2016-09-24 17:38] VITALS: BP 100/66
[2016-09-24 20:45] VITALS: BP 105/67
[2016-09-25 01:46] LABS: HEMOGLOBIN 11.2 gm/dL (12.0-15.0); MCH 25.1 pg (26.0-34.0); MCHC 32.9 g/dL (28.0-37.0); MCV 76.4 fL (80.0-100.0); RBC 4.45 mil/uL (4.20-5.00); RDW 21.5 % (10.5-14.5); WBC 18.5 thou/uL (4.0-11.0)
[2016-09-25 01:57] LABS: CREATININE 0.4 mg/dL (0.6-1.0); POTASSIUM 3.8 mmol/L (3.5-5.1)
[2016-09-25 05:36] VITALS: BP 92/57
[2016-09-25 08:19] VITALS: BP 94/56
[2016-09-25 15:55] LABS: ALBUMIN 2.1 g/dL (3.4-5.0); ALKALINE PHOSPHATASE 83 U/L (46-116); DIRECT BILIRUBIN < 0.1 mg/dL (<0.1-0.3); SGOT 28 U/L (15-37); SGPT 11 U/L (30-65); TOTAL BILIRUBIN 0.2 mg/dL (<0.1-1.0); TOTAL PROTEIN 6.6 g/dL (6.4-8.2)
[2016-09-25 16:39] VITALS: BP 101/68
[2016-09-25 20:32] VITALS: BP 110/68
[2016-09-26] VITALS (9 sets, daily range): BP systolic 95–117; BP diastolic 52–73
[2016-09-26 10:52] LABS: ABSOLUTE NEUTROPHILS 10.8 thou/uL (1.4-8.2); BASOPHILS 0.9 % (0.0-2.0); EOSINOPHILS 3.1 % (0.0-3.0); HEMATOCRIT 35.4 % (37.0-47.0); HEMOGLOBIN 11.3 gm/dL (12.0-15.0); LYMPHOCYTES 13.3 % (24.0-44.0); MCH 24.8 pg (26.0-34.0); MCHC 31.8 g/dL (28.0-37.0); MCV 77.8 fL (80.0-100.0); MONOCYTES 7.9 % (1.0-8.0); PLATELET COUNT 626 thou/uL (150-400); POLYS 74.8 % (36.0-66.0); RBC 4.54 mil/uL (4.20-5.00); RDW 21.8 % (10.5-14.5); WBC 14.5 thou/uL (4.0-11.0)
[2016-09-26 10:53] LABS: MANUAL DIFF NO
[2016-09-26 10:59] LABS: CREATININE 0.4 mg/dL (0.6-1.0)
[2016-09-27 04:50] VITALS: BP 93/55
[2016-09-27 05:51] VITALS: BP 97/57
[2016-09-27 06:02] LABS: HEMATOCRIT 32.8 % (37.0-47.0); HEMOGLOBIN 10.6 gm/dL (12.0-15.0); MCH 24.9 pg (26.0-34.0); MCHC 32.4 g/dL (28.0-37.0); RBC 4.26 mil/uL (4.20-5.00); RDW 21.5 % (10.5-14.5); WBC 13.4 thou/uL (4.0-11.0)
[2016-09-27 06:11] LABS: CALCIUM 8.2 mg/dL (8.5-10.1); CREATININE 0.3 mg/dL (0.6-1.0); POTASSIUM 3.9 mmol/L (3.5-5.1)
[2016-09-27 10:50] VITALS: BP 105/64
[2016-09-27 13:51] VITALS: BP 105/64
[2016-09-27 16:00] VITALS: BP 102/64
[2016-09-28 03:58] LABS: CREATININE 0.4 mg/dL (0.6-1.0); POTASSIUM 4.3 mmol/L (3.5-5.1)
[2016-09-28 04:00] VITALS: BP 99/66
[2016-09-28 04:13] LABS: HEMATOCRIT 31.1 % (37.0-47.0); HEMOGLOBIN 10.3 gm/dL (12.0-15.0); MCH 25.6 pg (26.0-34.0); MCHC 33.1 g/dL (28.0-37.0); MCV 77.3 fL (80.0-100.0); RBC 4.03 mil/uL (4.20-5.00); RDW 21.9 % (10.5-14.5); WBC 10.5 thou/uL (4.0-11.0)
[2016-09-28 08:00] VITALS: BP 107/64
[2016-09-28 15:57] VITALS: BP 95/57
[2016-09-28 20:00] VITALS: BP 108/70
[2016-09-29 04:40] VITALS: BP 121/67
[2016-09-29 08:00] VITALS: BP 104/69
[2016-09-30 03:00] VITALS: BP 101/66
[2016-09-30 05:38] LABS: HEMATOCRIT 32.1 % (37.0-47.0); HEMOGLOBIN 10.5 gm/dL (12.0-15.0); MCH 25.7 pg (26.0-34.0); MCHC 32.5 g/dL (28.0-37.0); MCV 78.9 fL (80.0-100.0); RBC 4.07 mil/uL (4.20-5.00); RDW 22.1 % (10.5-14.5); WBC 9.4 thou/uL (4.0-11.0)
[2016-09-30 05:51] LABS: CALCIUM 8.1 mg/dL (8.5-10.1); CREATININE 0.3 mg/dL (0.6-1.0)
[2016-09-30 08:00] VITALS: BP 99/69
[2016-09-30 13:50] VITALS: BP 101/66
[2016-09-30] MEDS ORDERED: IRON325 PO (15:16)
[2016-09-30 15:26] VITALS: BP 105/64
[2016-09-30 16:00] VITALS: BP 103/64
== END 2016-09-30 18:56 | disposition home or self-care (01) | DRG 871 ==
LOC: ER 10:14 → EROBS 14:07 → 4S 14:07 → EROBS 15:05 → 4S 15:05
PROVIDERS: Emergency Medicine; Hospitalist; Internal Medicine; Specialist
DX: A41.9 Sepsis, unspecified organism (principal); E43 Unspecified severe protein-calorie malnutrition; N39.0 Urinary tract infection, site not specified; G82.20 Paraplegia, unspecified; L89.322 Pressure ulcer of left buttock, stage 2; L89.312 Pressure ulcer of right buttock, stage 2; K62.89 Other specified diseases of anus and rectum; B96.20 Unspecified Escherichia coli [E. coli] as the cause of diseases classified elsewhere; D50.9 Iron deficiency anemia, unspecified; E87.6 Hypokalemia; E83.42 Hypomagnesemia; E66.9 Obesity, unspecified; B96.5 Pseudomonas (aeruginosa) (mallei) (pseudomallei) as the cause of diseases classified elsewhere; N73.9 Female pelvic inflammatory disease, unspecified; G40.909 Epilepsy, unspecified, not intractable, without status epilepticus; I10 Essential (primary) hypertension; J45.909 Unspecified asthma, uncomplicated; Q05.9 Spina bifida, unspecified; Z88.1 Allergy status to other antibiotic agents; Z91.040 Latex allergy status; Z79.899 Other long term (current) drug therapy; Z90.710 Acquired absence of both cervix and uterus; Z68.27 Body mass index [BMI] 27.0-27.9, adult; Z93.3 Colostomy status; Z87.442 Personal history of urinary calculi; Z87.440 Personal history of urinary (tract) infections; Z99.3 Dependence on wheelchair
CPT/HCPCS: 10102; 27000

== ENCOUNTER → 2016-11-04 | Outpatient (CLI) | payer OTHER | LOC: CAT 09:25 | DX: M46.28 Osteomyelitis of vertebra, sacral and sacrococcygeal region (principal) ==

== ENCOUNTER → 2016-11-13 | Outpatient (CLI) | payer OTHER | END | disposition home or self-care (01) | LOC: SPEC 09:14 | DX: Z45.2 Encounter for adjustment and management of vascular access device (principal) ==

== ENCOUNTER 2017-08-13 08:52 | Inpatient (IN) | payer OTHER ==
[~2017-08-13] VITALS: Ht 144.8 cm; Wt 55.1 kg
--- NOTE | ~2017-08-13 | O ---
[facility] [place] [address] OPERATIVE REPORT Name: JEFE DIAZ Room #: 424-P ADM IN M.R.#: [id number] Admission: 08/13/17 Attend Phys: Jc Aguirre Discharge: Date of : 78 Report #: [id number] THIS REPORT FOR: //name// CC: Ga Romano DATE OF SERVICE: 08/15/2017 SURGEON: Marko Duarte MD. PORTABLE MACHINE SANDER: None. PREOPERATIVE DIAGNOSES: 1. Left ischial decubitus ulcer with abscess. 2. Proctitis/rectosigmoid remnant abscess. 3. Spina bifida. 4. Asperger syndrome. 5. Hypertension. 6. Asthma. 7. Paraplegia. 8. Neurogenic bladder. 9. Chronic urinary tract infections. 10. History of methicillin-resistant Staphylococcus aureus. POSTOPERATIVE DIAGNOSES: 1. Left ischial decubitus ulcer with abscess. 2. Proctitis/rectosigmoid remnant abscess. 3. Spina bifida. 4. Asperger syndrome. 5. Hypertension. 6. Asthma. 7. Paraplegia. 8. Neurogenic bladder. 9. Chronic urinary tract infections. 10. History of methicillin-resistant Staphylococcus aureus. PROCEDURES: 1. Excisional debridement of left ischial decubitus ulcer and abscess cavity including skin and subcutaneous tissue (measuring 2.5 cm long x 2 cm wide prior to excision; 8.3 cm long x 6.2 cm wide x 2.5 cm deep post-excision = 52.7 cm2). 2. Misonix ultrasonic debridement of left ischial decubitus ulcer and abscess cavity ANESTHESIA: Monitored anesthetic care and local anesthetic. [facility] [address] [place] [address] OPERATIVE REPORT Name: JEFE DIAZ Room #: 424-P [facility] IN M.R.#: [id number] Admission: 08/13/17 Attend Phys: Jc Aguirre Discharge: Date of : 78 Report #: [id number] ESTIMATED BLOOD LOSS: 25 mL. SPECIMEN: Left ischial tissue. COMPLICATIONS: None appreciated. INDICATIONS FOR PROCEDURE: This is a 37-year-old female patient with a history of spina bifida, who was seen in the [facility] with a temperature of [address], which showed inflammatory change involving the left ischial tissue. On exam, she had a nickel-sized left ischial decubitus ulcer with necrotic skin and a larger area of induration surrounding the wound extending inferiorly with a small amount of malodorous collier drainage present. The patient presents today for excisional debridement of the wound and abscess. OPERATIVE FINDINGS: Purulence was expressed from the wound prior to incision. After excising the wound, the abscess cavity extended 2.5 cm deep and was close to the surface of the skin necessitating removal of the skin and subcutaneous tissue to fully open up the abscess cavity and facilitate wound care. There was no deep extension or evidence for fistulization. A moderate amount of pus was present. The pus was not malodorous. The surrounding tissue was otherwise soft (not typical for an MRSA infection). No other significant pathology was seen in this area. At the conclusion of the procedure, sponge, needle and instrument counts were correct. DESCRIPTION OF PROCEDURE IN DETAIL: After the risks, benefits and expectations of the operation were discussed in detail with the patient, informed consent was obtained. The patient was identified in the preoperative holding area. She had been receiving scheduled IV antibiotics as directed by the Infectious Disease Service. The patient was then taken to the Operating Room and she was placed in the supine position. SCDs were placed on the patient's bilateral lower extremities and pneumatic compression was initiated. The patient was given IV sedation and placed in the prone position on the Operating Room table. Her left ischial area was prepped and draped in the standard sterile fashion. A time-out was performed to identify the correct patient and procedure. The ulcerated area was measured with findings as noted above. Local anesthetic was infiltrated into the skin and subcutaneous tissue. A sharp #10 blade scalpel was then used to make the incision. Pus was immediately seen. Cultures were taken to be sent for aerobes, anaerobes, fungus and AFB. The necrotic tissue on the surface was excised. The underlying tissue was necrotic and contained a pus extending into an abscess cavity that extended more inferiorly. Cultures were taken from the abscess cavity itself as well. The overlying skin was thin and decision was made to excise this to facilitate wound care. The wound was then irrigated and bleeding points were made hemostatic with electrocautery. Local anesthetic was infiltrated into the wound base. The [address] [address] OPERATIVE REPORT Name: JEFE DIAZ Room #: 424-P ADM IN M.R.#: [id number] Admission: 08/13/17 Attend Phys: Jc Aguirre Discharge: Date of : 78 Report #: [id number] entire wound surface was then ultrasonically debrided with the Misonix device. This induced a gentle ooze from the tissue. Bleeding points were made hemostatic with electrocautery. The wound was again irrigated. Direct pressure was held on the wound after its removal, there was no significant bleeding other than a mild ooze from the debrided tissue. All tissue appeared healthy at this point. The wound had been digitally probed with no evidence for a fistula or other pathology. The wound was then packed with 1:1 Betadine and normal saline on a Kerlix. 4 x 4s and ABD and tape were then applied. The patient tolerated the procedure well. She remained sedated for a flexible sigmoidoscopy, performed by Dr. Royer Mckeon. <ELECTRONICALLY SIGNED> By: Marko Duarte MD, FACS 08/17/17 2219 0904 1102 Marko Duarte MD, FACS /nt
--- NOTE | ~2017-08-13 | P ---
[facility] [place] [address] PROCEDURE REPORT Name: JEFE DIAZ Room #: 424-P [facility] IN M.R.#: [id number] Admission: 08/13/17 Attend Phys: Jc Aguirre Discharge: 08/19/17 Date of : 78 Report #: [id number] THIS REPORT FOR: //name// CC: Ga Duarte MD TYPE OF REPORT: Inpatient flexible sigmoidoscopy. BRIEF HISTORY: The patient is a 37-year-old woman with history of multiple medical problems including spina bifida. A recent CT showed thickening of the rectum and possibly an abscess in the pelvis. There had been questions raised about a fistula. She has a diverting colostomy with the rectal stump remaining. She does note some blood and mucus per rectum. PREOPERATIVE DIAGNOSIS: Abnormal rectum on CT. POSTOPERATIVE DIAGNOSIS: Diffuse proctitis of rectal stump. MEDICATIONS: She received anesthesia for debridement of wound and anesthesia was continued for the flexible sigmoidoscopy. SPECIMEN: Biopsies of rectum. ESTIMATED BLOOD LOSS: 3 mL. PROCEDURE: Flexible sigmoidoscopy with biopsy. FINDINGS: Prior to sedation, the procedure of flexible sigmoidoscopy was discussed with the patient as well as potential risks and its complications. She indicates she understands and desires to proceed. DESCRIPTION OF PROCEDURE: Our case to follow the wound debridement. The patient was already in the prone position and the flexible sigmoidoscopy was carried out in that position. Perianal inspection revealed normal mucosa. There were no perianal sores. An obvious fistula was not seen. There was no drainage. Digital rectal exam was unremarkable for strictures or masses. However, there was noted to be a pinkish mucusy material on the examining digit. Subsequently, eTect video upper endoscope was inserted into the anus and advanced into the rectum. The scope was advanced very very carefully. No significant pressure was applied with insertion of the scope. We irrigated and the mucosa was covered with a thick mucousy layer, which was pinkish in color. I do not see any discrete ulcers, but certainly proctitis may be present. We very carefully advanced the scope to what I believe was the blind end. A staple was seen at that point. We did not push any further. In my estimate there was about 10-12 cm of rectum remaining. I did not retroflex so as not to cause any [facility] [address] [place] [address] PROCEDURE REPORT Name: SAMANTHA DIAZN SHAZIA Room #: 424-P DIS IN M.R.#: [id number] Admission: 08/13/17 Attend Phys: Jc Aguirre Discharge: 08/19/17 Date of : 78 Report #: [id number] further injury or trauma. Multiple biopsies were obtained. Scope was withdrawn and the patient also procedure well. DISPOSITION: The patient has what appears to be diffuse proctitis. I do not see any fistulas. If there remains concern about a fistula, a CT with installation of rectal barium may be a consideration. Continue hydrocortisone suppository at this time. <ELECTRONICALLY SIGNED> By: Royer Mckeon MD 08/19/17 1517 0856 [id number] Royer Mckeon MD /nt
--- NOTE | ~2017-08-13 | HC ---
[facility] [place] [address] CONSULTATION Name: JEFE DIAZ Room #: 424-P ADM IN M.R.#: [id number] Admission: 08/13/17 Attend Phys: Jc Aguirre Discharge: Date of : 78 Report #: [id number] THIS REPORT FOR: //name// CC: Jc White DATE OF SERVICE: 08/14/2017 WOUND CARE CONSULTATION PERSONAL PHYSICIAN: Agustin White DO CHIEF COMPLAINT: Left ischial decubitus ulcer and fevers. HISTORY OF PRESENT ILLNESS: This is a 37-year-old white female with history of spina bifida and a long history of recurrent urinary tract infections. The patient states this past week, was diagnosed with a urinary tract infection in the Emergency Department at [facility]. The patient was started on antibiotics, but still continued to have fevers at that time. The patient states the fever is getting worse, so she came to the Emergency Department to be evaluated. Upon arrival to the Emergency Department, the patient was noted to have an unstageable decubitus ulcer in her left ischial region, which prompted consultation with Dr. Nowak for evaluation of both her urinary tract infection and what appears to be an underlying abscess under the ulceration. The patient has had history of previous abscesses that spontaneously drained. We have been asked to see the patient because of the ulceration. The patient is actually scheduled to have drainage of the abscess in the morning. The patient states this ulceration has just started within the past week to week and a half. The patient states she and her mother are very conscious of watching over her skin closely to make sure she does not have open ulcerations. The patient states that her mother stated about a week ago, she had an area of skin car changer the ischial tuberosity developing ulcer. The patient states she does spend most of her time in her wheelchair. The patient has not had a wheelchair evaluation for her cushion for at least a couple of years. The patient denies any other open ulcerations at this time. We have been asked to follow the patient for this. PAST MEDICAL HISTORY: Significant for spina bifida with myelomeningocele, pelvic radiation secondary to dermoid cyst, hypertension, seizure disorder, multiple orthopedic surgeries, asthma, status post diverting colostomy, status post ileal conduit, paraplegia secondary to spina bifida, neurogenic bladder, previous decubitus ulcers, previous abscesses. CURRENT MEDICATIONS: Multiple, I reviewed the patient's medication list. DRUG ALLERGIES: GENTAMICIN, LATEX [place] [address] CONSULTATION Name: JEFE DIAZ Room #: 424-P [facility] IN M.R.#: [id number] Admission: 08/13/17 Attend Phys: Jc Aguirre Discharge: Date of : 78 Report #: [id number] SOCIAL HISTORY: The patient does not smoke. Drinks alcohol socially. FAMILY HISTORY: Not pertinent to current medical condition. REVIEW OF SYSTEMS: CONSTITUTIONAL: Positive for fevers and chills. EYES: No complaints. ENT: No complaints. CARDIAC: The patient denies chest pain, palpitations or peripheral edema. RESPIRATORY: The patient denies shortness breath, cough or wheezes. GASTROINTESTINAL: The patient has a decreased appetite, but no associated nausea, vomiting. GENITOURINARY: The patient has recurrent urinary tract infections despite an ileal conduit. MUSCULOSKELETAL: No complaints. SKIN: There is an unstageable decubitus ulcer with fluctuance. PHYSICAL EXAMINATION: VITAL SIGNS: The patient is afebrile, pulse 105, respirations 18, BP 108/64. GENERAL: This is alert and oriented x 3, slightly ill appearing white female who is in mild distress. HEENT: Normocephalic, atraumatic. Sclerae are dry. Pupils are round. Sclerae white. NECK: Supple, nontender. LUNGS: Clear. HEART: Regular. ABDOMEN: Obese, soft, nontender with colostomy and ileostomy in place and appeared to be functioning well. EXTREMITIES: Evaluation of the left ischial region reveals an unstageable decubitus ulcer with fluctuance. The ulcer on the outside itself has dense thick eschar nature. There is no spontaneous drainage noted from the ulceration itself. Surrounding the eschar is an area of erythema, warmth and fluctuance. There is no other ulcerations noted on the area of the posterior sacrococcygeal or right ischial regions. EXTREMITIES: The patient has no spontaneous movement of her lower extremities. Bilateral heels are intact. NEUROLOGIC: Cranial nerves 2-12 are grossly intact. The patient is paraplegic. LABORATORY DATA: White count 10.5, hemoglobin 10.9, BUN 15, creatinine 0.6, albumin is 2.8. WOUND CARE COURSE: The patient is already scheduled for what appears to be surgery with Dr. Duarte tomorrow for drainage of this ulceration and abscess. Once that has been performed, we will follow the patient for the most likely be a large open wound. IV antibiotics have been controlled by Dr. Nowak. The patient also at discharge most likely will follow up at [facility] [address] [address] CONSULTATION Name: JEFE DIAZ Room #: 424-P [facility] IN ..#: [id number] Admission: 08/13/17 Attend Phys: Jc Pisano Timothy Discharge: Date of : 78 Report #: [id number] where she has been previously obtaining her wound care. IMPRESSION: 1. Unstageable decubitus ulcer, left ischial tuberosity with underlying abscess. 2. Paraplegia secondary to spina bifida. 3. Protein calorie malnutrition, moderate with an albumin of 2.8. 4. History of diverting colostomy and urostomy. PLAN: As stated above, at this time, we will continue with just a foam dressing over the area of the ulceration pending the surgical evacuation of the abscess in the morning. We will continue to follow the patient and maximize her oral protein supplementation as needed for healing, and we will continue to follow the patient. By: 1348 2220 Yuri Romano MD /nt
--- NOTE | ~2017-08-13 | HC ---
[facility] [place] [address] CONSULTATION Name: JEFE DIAZ Room #: 424-P ADM IN M.R.#: [id number] Admission: 08/13/17 Attend Phys: Jc Aguirre Discharge: Date of : 76 Report #: [id number] THIS REPORT FOR: //name// CC: Jc White DATE OF SERVICE: 08/13/2017 INFECTIOUS DISEASE CONSULTATION REASON FOR CONSULTATION: I was asked to evaluate concerning ongoing fever despite antibiotic therapy for urinary tract infection. HISTORY OF PRESENT ILLNESS: The patient is a 37-year-old with spina bifida and history of diverting colostomy and ileal conduit. She has had a long history of recurrent urinary tract infections. She had a bladder reconstruction when she was a baby. This was later taken down several years ago to now an ileal conduit. With this, she has had some improvement with less urinary tract infections. In addition, she has had radiation to the pelvis and has recurring episodes of proctitis. Last week, she developed fever and increased abdominal pain. She was seen in the Emergency Room at [facility]. There, a CAT scan was performed and she was diagnosed with urinary tract infection, placed on oral antibiotic therapy, but continued to run fever over 101 degrees last night. I discussed with her mother last evening that she should come in to get reevaluated. REVIEW OF SYSTEMS: Notes no headache, cough or sputum production. The abdominal pain has resolved. No vomiting. She does have some rectal discharge. Stool from her colostomy has been normal. She has had good urine output from her urostomy. She has developed a pressure wound to the left ischium over the last week. This is a new issue for her. She is paralyzed and spends most of her time in a wheelchair. There is some discussion of needing her cushion revised. In the last several months, she has had development of an abscess to her left inguinal region. By history, she states that this was tracking down to her vulva. This drained spontaneously and was treated with oral antibiotic therapy. I was not involved in this treatment. ALLERGIES: LATEX, LEVAQUIN WITH RASH, GENTAMICIN. MEDICATIONS: As noted on her MAR including Cardizem, [place], ursodiol, iron, multivitamin, cephalexin, then changed to Bactrim. PAST MEDICAL HISTORY, FAMILY HISTORY AND SOCIAL HISTORY: Unchanged from her previous consultation and that of her history and physical. Most of her issues have all been complications of her spina bifida and paraplegia. [facility] [address] [place] [address] CONSULTATION Name: JEFE DIAZ Room #: 424-P [facility] IN M.R.#: [id number] Admission: 08/13/17 Attend Phys: Jc Aguirre Discharge: Date of : 76 Report #: [id number] PHYSICAL EXAMINATION: VITAL SIGNS: Afebrile, hemodynamically stable. GENERAL: The patient was alert and cooperative. Initially sitting up in her wheelchair. I was evaluating the patient down in the Emergency Room. She was placed in bed. HEENT: Unremarkable. NECK: Supple. LUNGS: Clear. HEART: Regular, without murmur. ABDOMEN: Soft. Colostomy and urostomy sites were unremarkable. There was no appreciable mass or hepatosplenomegaly. Vulva was unremarkable. I can palpate no fluctuant areas. There were no fluctuant areas to her posterior pelvis or evidence of sinus tract. There was a pressure wound with skin necrosis involving the left ischium. EXTREMITIES: She had 2+ edema to her left foot and lower leg. She is paraplegic. LABORATORY STUDIES: Hemoglobin 10.9, WBC 10.5, unremarkable differential, platelet count was 394,000. Sedimentation rate 91. Sodium 139, potassium 3.5, bicarbonate 21, creatinine 0.6. Liver function test normal. Chest x-ray was clear. Ultrasound of the lower extremity venous system negative for DVT. Urinalysis, rare wbc's, many bacteria. Urine culture and blood cultures are pending. Review of the [facility] CT [facility] showed no intra-abdominal pathology other than postop change. No report of soft tissue abscess. IMPRESSION: A 37-year-old with paraplegia from spina bifida who has had previous issues with pelvic soft tissue infection, recurrent urinary tract infections, presents now with ongoing fever, elevated sedimentation rate, left ischial decubitus and bacteriuria from a urostomy, also has symptoms of proctitis. RECOMMENDATIONS: We will continue meropenem antibiotic coverage for urinary tract as well as the pelvis. Obtain MRI scan of the pelvis to rule out deep seated infection or osteomyelitis as cause of her elevated sedimentation rate. PLAN: Offload the left ischium as much as possible. Will need further outpatient wound care. I have discussed with attending, the patient and her mother regarding her treatment options and current approach. <ELECTRONICALLY SIGNED> By: Ga Nowak MD 08/14/17 0817 1439 Ga Nowak MD /nt
[2017-08-13 09:37] VITALS: BP 118/74
[2017-08-13 09:45] LABS: ABSOLUTE NEUTROPHILS 8.4 thou/uL (1.4-8.2); BASOPHILS 0.5 % (0.0-2.0); EOSINOPHILS 2.1 % (0.0-3.0); HEMATOCRIT 32.6 % (37.0-47.0); HEMOGLOBIN 10.9 gm/dL (12.0-15.0); LYMPHOCYTES 9.8 % (24.0-44.0); MCH 27.9 pg (26.0-34.0); MCHC 33.4 g/dL (28.0-37.0); MCV 83.6 fL (80.0-100.0); MONOCYTES 8.3 % (1.0-8.0); PLATELET COUNT 394 thou/uL (150-400); POLYS 79.3 % (36.0-66.0); RDW 14.9 % (10.5-14.5); WBC 10.5 thou/uL (4.0-11.0)
[2017-08-13 09:53] LABS: CALCIUM 8.8 mg/dL (8.5-10.1); CREATININE 0.6 mg/dL (0.6-1.0)
[2017-08-13 09:58] LABS: ALBUMIN 2.8 g/dL (3.4-5.0); TOTAL BILIRUBIN 0.2 mg/dL (<0.1-1.0)
[2017-08-13 10:02] LABS: POTASSIUM 2.5 mmol/L (3.5-5.1)
[2017-08-13 11:07] VITALS: BP 118/74
[2017-08-13 12:30] VITALS: BP 110/71
[2017-08-13 13:23] LABS: URINE BILIRUBIN NEGATIVE (Negative); URINE BLOOD 1+ (Negative); URINE CLARITY CLEAR; URINE COLOR YELLOW; URINE GLUCOSE-RANDOM* NEGATIVE (Negative); URINE KETONES NEGATIVE (Negative); URINE LEUKOCYTES 2+ (Negative); URINE NITRITE POSITIVE (Negative); URINE PROTEIN (DIPSTICK) NEGATIVE (Negative); URINE SPECIFIC GRAVITY 1.015 (1.005-1.035); URINE UROBILINOGEN 0.2 E.U./dl (0.2-1.0)
[2017-08-13 13:53] LABS: BACTERIA >30 Many /HPF (None Seen); CASTS None Seen /LPF (None Seen); CRYSTALS None Seen /LPF (None Seen); SQUAMOUS 0-3 Few /LPF (0-3); URINE RBC None Seen /HPF (0-2); URINE WBC 0-5 Rare /HPF (0-5)
[2017-08-13 20:00] VITALS: BP 118/73
[2017-08-13 23:05] VITALS: BP 117/80
[2017-08-14 03:29] VITALS: BP 108/64
[2017-08-14 11:52] VITALS: BP 97/65
[2017-08-14 15:00] VITALS: BP 174/83
[2017-08-14 20:18] VITALS: BP 113/61
[2017-08-15 04:30] VITALS: BP 108/64
[2017-08-15 07:34] VITALS: BP 110/66
[2017-08-15 09:53] VITALS: BP 114/79
[2017-08-15 20:13] VITALS: BP 106/72
[2017-08-16 00:07] VITALS: BP 104/72
[2017-08-16 04:37] VITALS: BP 96/68
[2017-08-16 09:15] VITALS: BP 95/63
[2017-08-16 20:24] VITALS: BP 104/69
[2017-08-16 23:07] LABS: GLYCOHEMOGLOBIN (HGB A1C) 5.2 % (4.8-5.6)
[2017-08-17 03:51] VITALS: BP 88/55
[2017-08-17 06:04] LABS: HEMATOCRIT 29.4 % (37.0-47.0); HEMOGLOBIN 9.6 gm/dL (12.0-15.0); MCH 27.7 pg (26.0-34.0); MCHC 32.6 g/dL (28.0-37.0); RBC 3.46 mil/uL (4.20-5.00); WBC 5.6 thou/uL (4.0-11.0)
[2017-08-17 06:15] LABS: CREATININE 0.4 mg/dL (0.6-1.0); POTASSIUM 3.7 mmol/L (3.5-5.1)
[2017-08-17 20:30] VITALS: BP 111/65
[2017-08-18 03:36] VITALS: BP 99/62
[2017-08-18] MEDS ORDERED: MEROPENEM 1 GM V1 GM IVPB (07:36)
[2017-08-18] MEDS ORDERED: VANCO1GM IV (07:37)
[2017-08-18] MEDS ORDERED: SYNTHROID50 MCG PO (07:38)
[2017-08-18] MEDS ORDERED: ANUSOL-HC25 MG RECTAL (07:38)
[2017-08-18 07:45] VITALS: BP 96/65
[2017-08-18 18:30] VITALS: BP 108/68
[2017-08-18 19:30] VITALS: BP 105/68
[2017-08-19 03:47] VITALS: BP 89/46
[2017-08-19 07:25] VITALS: BP 98/62
== END 2017-08-19 13:05 | DRG 570 ==
LOC: ER 08:52 → 4E 10:12 → EROBS 10:12 → 4E 12:32
PROVIDERS: Hospitalist; Nurse Practitioner; Specialist
PROC: 0DBP8ZX Excision of Rectum, Via Natural or Artificial Opening Endoscopic, Diagnostic (ICD-10-PCS; principal; 2017-08-15)
PROC: 0JB90ZZ Excision of Buttock Subcutaneous Tissue and Fascia, Open Approach (ICD-10-PCS; principal; 2017-08-15)
PROC: B548ZZA Ultrasonography of Superior Vena Cava, Guidance (ICD-10-PCS; 2017-08-19)
PROC: B5181ZA Fluoroscopy of Superior Vena Cava using Low Osmolar Contrast, Guidance (ICD-10-PCS; 2017-08-19)
PROC: 02HV33Z Insertion of Infusion Device into Superior Vena Cava, Percutaneous Approach (ICD-10-PCS; 2017-08-19)
DX: L89.324 Pressure ulcer of left buttock, stage 4 (principal); G82.20 Paraplegia, unspecified; K62.5 Hemorrhage of anus and rectum; N39.0 Urinary tract infection, site not specified; K91.850 Pouchitis; E44.0 Moderate protein-calorie malnutrition; I10 Essential (primary) hypertension; J45.909 Unspecified asthma, uncomplicated; N31.9 Neuromuscular dysfunction of bladder, unspecified; K62.89 Other specified diseases of anus and rectum; E87.6 Hypokalemia; G40.909 Epilepsy, unspecified, not intractable, without status epilepticus; E03.9 Hypothyroidism, unspecified; Q05.9 Spina bifida, unspecified; Z86.14 Personal history of Methicillin resistant Staphylococcus aureus infection; Z93.3 Colostomy status; Z88.1 Allergy status to other antibiotic agents; Z91.040 Latex allergy status; Z79.899 Other long term (current) drug therapy; Z68.26 Body mass index [BMI] 26.0-26.9, adult; Z90.49 Acquired absence of other specified parts of digestive tract
CPT/HCPCS: 10084; 27001; 50010; 50101; 50386; 50403; 53353; 53354; 62110; 62850; 70005

== ENCOUNTER 2018-05-08 12:08 | Emergency (ER) | payer OTHER ==
[~2018-05-08] VITALS: Ht 144.8 cm; Wt 54.9 kg
[~2018-05-08 12:08] MED LIST changes: +ANUSOL-HC25 MG RECTAL; +MEROPENEM 1 GM V1 GM IVPB; +SYNTHROID50 MCG PO; +VANCO1GM IV
[2018-05-08] MEDS ORDERED: HYDROCODONE-AP1 EAC6 PO (13:05)
[2018-05-08 14:42] LABS: ABSOLUTE NEUTROPHILS 5.5 thou/uL (1.4-8.2); BASOPHILS 0.7 % (0.0-2.0); EOSINOPHILS 2.8 % (0.0-3.0); HEMATOCRIT 30.5 % (37.0-47.0); HEMOGLOBIN 9.9 gm/dL (12.0-15.0); LYMPHOCYTES 16.4 % (24.0-44.0); MCH 25.8 pg (26.0-34.0); MCHC 32.5 g/dL (28.0-37.0); MCV 79.4 fL (80.0-100.0); MONOCYTES 8.6 % (1.0-8.0); PLATELET COUNT 325 thou/uL (150-400); POLYS 71.5 % (36.0-66.0); RBC 3.85 mil/uL (4.20-5.00); RDW 18.5 % (10.5-14.5); WBC 7.7 thou/uL (4.0-11.0)
[2018-05-08 14:51] LABS: CALCIUM 8.3 mg/dL (8.5-10.1); CREATININE 0.4 mg/dL (0.6-1.0); POTASSIUM 3.3 mmol/L (3.5-5.1)
[2018-05-08 14:57] LABS: ALBUMIN 3.2 g/dL (3.4-5.0); TOTAL BILIRUBIN 0.2 mg/dL (<0.1-1.0); TOTAL PROTEIN 7.7 g/dL (6.4-8.2)
[2018-05-08 15:09] LABS: ANISOCYTOSIS 2+; PLATELET ESTIMATE NORMAL
[2018-05-08] MEDS ORDERED: DILTIAZEM 24HR240 M2 PO (15:39)
[2018-05-08] MEDS ORDERED: PROBIOTIC1 EAC4 PO (15:42)
[2018-05-08] MEDS ORDERED: MONUROL3 GM PER TUBE (15:43)
[2018-05-08] MEDS ORDERED: BACTRIM DS TAB1 EACH PO (15:43)
[2018-05-08 16:44] VITALS: BP 136/68
== END 2018-05-08 16:44 | disposition home or self-care (01) ==
LOC: ER 12:08
PROVIDERS: Physician Assistant
DX: N39.0 Urinary tract infection, site not specified (principal); I10 Essential (primary) hypertension; J45.909 Unspecified asthma, uncomplicated; Z91.040 Latex allergy status; Z88.1 Allergy status to other antibiotic agents; Z88.8 Allergy status to other drugs, medicaments and biological substances; Z87.440 Personal history of urinary (tract) infections

== ENCOUNTER → 2020-02-03 | Outpatient (CLI) | payer OTHER ==
[~2020-02-03] MED LIST changes: +DILTIAZEM 24HR240 M2 PO; +HYDROCODONE-AP1 EAC6 PO; +MONUROL3 GM PER TUBE; +PROBIOTIC1 EAC4 PO
--- NOTE | 2020-02-03 11:56 | NUR ---
IN FOR PORTACATH FLUSH. ADMISSION HISTORY AND ASSESSMENT COMPLETED. ACCESSED PORTACATH WITHOUT DIFFICULTY AND RECEIVED GOOD BLOOD RETURN. FLUSHED PORTACATH WITH 10 ML NS FOLLOWED BY HEPARIN 500 UNITS. DEACCESSED AND DISMISSED IN STABLE CONDITION. TO RETURN IN 6 WEEKS FOR THE SAME.
== END ==
LOC: OPONC 10:48
PROVIDERS: ATTEND Specialist
DX: Z45.2 Encounter for adjustment and management of vascular access device (principal)

== ENCOUNTER → 2020-03-15 | Outpatient (CLI) | payer OTHER ==
[2020-03-15 11:30] VITALS: BP 127/72
--- NOTE | 2020-03-15 11:30 | NUR ---
PT HERE FOR MONTHLY PORT FLUSH. PORT ACCESSED WITH EASE, BRISK BLOOD RETURN OBTAINED, FLUSHED PER PROTOCOL. PT REPORTS DOING WELL LATELY, FEELING WELL. SCHEDULED TO RETURN AFTER THE HOLIDAYS PER PT REQUEST. DISMISSED IN STABLE CONDITION.
== END ==
LOC: OPONC 09:43
PROVIDERS: ATTEND Specialist
DX: Z45.2 Encounter for adjustment and management of vascular access device (principal)

== ENCOUNTER → 2020-05-03 | Outpatient (CLI) | payer OTHER ==
--- NOTE | 2020-05-03 11:10 | NUR ---
PT HERE FOR ROUTING PORT FLUSH. REPORTS DOING WELL, FEELING WELL. NO CONCERNS NOTED. ACCESSED PORT WITHOUT DIFFICULTY, EXCELLENT BLOOD RETURN OBTAINED, FLUSHED ORDERED, DEACCESSED. PT DISMISSED IN STABLE CONDITION. SCHEDULED TO RETURN IN 6 WEEKS PER PT PREFERENCE.
== END ==
LOC: OPONC 10:56
PROVIDERS: ATTEND Specialist
DX: Z45.2 Encounter for adjustment and management of vascular access device (principal)

== ENCOUNTER → 2020-06-21 | Outpatient (CLI) | payer OTHER ==
--- NOTE | 2020-06-21 10:55 | NUR ---
PT HERE FOR Q4-6 WEEK PORT FLUSH. PORT ACCESSED WITHOUT DIFFICULY, BRISK BLOOD RETURN OBTAINED, FLUSHED SALINE X 20ML THEN HEPARINIZED SALINE. NEEDLE REMOVED. PT REPORTS DOING WELL. NO CONCERNS NOTED. DISMISSED IN STABLE CONDITION. SCHEDULED TO RETURN AGAIN ON July.
== END ==
LOC: OPONC 06-14 14:03
PROVIDERS: ATTEND Specialist
DX: Z45.2 Encounter for adjustment and management of vascular access device (principal); Q05.9 Spina bifida, unspecified

== ENCOUNTER → 2020-07-26 | Outpatient (CLI) | payer OTHER ==
--- NOTE | 2020-07-26 10:40 | NUR ---
HERE FOR ROUTINE PORT MAINTENANCE/FLUSH. ACCESSED WITHOUT DIFFILCUTLY, EXCELLENT BLOOD RETURN, FLUSHED THEN DEACCESSED. DISMISSED IN STABLE CONDITION. SCHEDULED TO RETURN IN 6 WEEKS.
== END ==
LOC: OPONC 16:11
PROVIDERS: ATTEND Specialist
DX: Z45.2 Encounter for adjustment and management of vascular access device (principal); Q05.9 Spina bifida, unspecified

== ENCOUNTER 2020-08-07 11:05 | Emergency (ER) | payer OTHER ==
[~2020-08-07] VITALS: Ht 144.8 cm; Wt 56.7 kg
[2020-08-07 13:18] LABS: ABSOLUTE NEUTROPHILS 6.7 thou/uL (1.4-8.2); BASOPHILS 0.6 % (0.0-2.0); EOSINOPHILS 2.2 % (0.0-3.0); HEMATOCRIT 29.4 % (37.0-47.0); HEMOGLOBIN 9.4 gm/dL (12.0-15.0); LYMPHOCYTES 11.7 % (24.0-44.0); MCH 24.8 pg (26.0-34.0); MCHC 31.9 g/dL (28.0-37.0); MCV 77.9 fL (80.0-100.0); MONOCYTES 12.1 % (1.0-8.0); PLATELET COUNT 368 thou/uL (150-400); POLYS 73.4 % (36.0-66.0); RBC 3.78 mil/uL (4.20-5.00); RDW 16.7 % (10.5-14.5); WBC 9.1 thou/uL (4.0-11.0)
[2020-08-07 13:27] LABS: CALCIUM 8.2 mg/dL (8.5-10.1); CREATININE 0.5 mg/dL (0.6-1.0); POTASSIUM 3.2 mmol/L (3.5-5.1)
[2020-08-07 13:34] LABS: ALBUMIN 2.9 g/dL (3.4-5.0); TOTAL BILIRUBIN 0.1 mg/dL (0.2-1.0); TOTAL PROTEIN 7.3 g/dL (6.4-8.2)
[2020-08-07 13:44] LABS: URINE BILIRUBIN NEGATIVE (Negative); URINE BLOOD 2+ (Negative); URINE COLOR YELLOW; URINE GLUCOSE-RANDOM* NEGATIVE (Negative); URINE KETONES NEGATIVE (Negative); URINE PROTEIN (DIPSTICK) 1+ (Negative); URINE UROBILINOGEN 0.2 E.U./dl (0.2-1.0)
[2020-08-07 13:47] LABS: URINE CLARITY HAZY; URINE LEUKOCYTES-REFLEX 3+ (Negative); URINE NITRITE-REFLEX POSITIVE (Negative)
[2020-08-07 13:54] LABS: SQUAMOUS 0-3 Few /LPF (0-3); URINE RBC 3-10 Few /HPF (0-2); URINE WBC-REFLEX 6-15 Few /HPF (0-5)
[2020-08-07 13:55] LABS: BACTERIA-REFLEX >30 Many /HPF (None Seen); CASTS None Seen /LPF (None Seen); CRYSTALS None Seen /LPF (None Seen)
[2020-08-07] MEDS ORDERED: POTASSIUM20 PO (14:13)
[2020-08-07] MEDS ORDERED: BACTRIM DS TAB1 EACH PO (14:13)
[2020-08-07] MEDS ORDERED: FLAGYL500 M1 PO (17:21)
[2020-08-07 17:35] VITALS: BP 115/74
--- NOTE | 2020-08-08 09:28 | EKG ---
[place] [address] [place] [address] ELECTROCARDIOGRAM REPORT Name: JEFE DIAZ Room #: [facility]#: [id number] Admission: 08/07/20 Attend Phys: Discharge: 08/07/20 Date of : 76 Report #: [id number] [facility] ED Test Date: 2020-08-07 Test Time: 11:52:46 Pat Name: JEFE DIAZ Department: Room: Gender: F Chief Operator Lock Tender: SABA : 1980 Requested By: Yrn Lew Order Number: [id number] MD: Rober Betts Measurements Intervals [place] Rate: 118 P: 44 DC: 148 QRS: 32 QRSD: 96 T: 15 QT: 350 QTc: 491 Interpretive Statements Sinus tachycardia Abnormal R-wave progression, early transition Borderline T abnormalities, diffuse leads Borderline prolonged QT interval Compared to ECG 09/17/2016 11:15:45 No significant change was found Electronically Signed On 08-08-2020 9:28:21 CDT by Rober Betts [email or web address] <ELECTRONICALLY SIGNED> By: Rober Betts MD, [facility] 08/08/20 0928 1152 1152 Rober Betts MD, FAC /EPI
== END 2020-08-07 17:35 | disposition home or self-care (01) ==
LOC: ER 11:05
PROVIDERS: Emergency Medicine
DX: N39.0 Urinary tract infection, site not specified (principal); E87.6 Hypokalemia; G40.909 Epilepsy, unspecified, not intractable, without status epilepticus; I10 Essential (primary) hypertension; J45.909 Unspecified asthma, uncomplicated; Z91.040 Latex allergy status; Z88.1 Allergy status to other antibiotic agents; Z79.899 Other long term (current) drug therapy

== ENCOUNTER → 2020-09-13 | Outpatient (CLI) | payer OTHER ==
[~2020-09-13] MED LIST changes: +FLAGYL500 M1 PO; +POTASSIUM20 PO
--- NOTE | 2020-09-13 11:04 | NUR ---
ARRIVED IN WHEELCHAIR WITH MOTHER FOR PORT MAINTENANCE. PORT ACCESSED FLUSHED AND PACKED WITH HEPARIN. EXCELLENT BLOOD RETURN. PORT DEACCESSED. PATIENT DISCHARGED PER WHEELCHAIR. APPOINTMENT MADE FOR 6 WEEKS TO RETURN FOR NEXT PORT FLUSH.
== END ==
LOC: OPONC 11:56
PROVIDERS: ATTEND Specialist
DX: Z45.2 Encounter for adjustment and management of vascular access device (principal); Q05.9 Spina bifida, unspecified

== ENCOUNTER → 2020-10-25 | Outpatient (CLI) | payer OTHER ==
--- NOTE | 2020-10-25 11:05 | NUR ---
HERE FOR ROUTINE PORT MAINTENANCE AND FLUSH. REPORTS DOING WELL. DENIES FEVER OR S/S INFECTION AT THIS TIME BUT HAS HAD SOME UTI'S OFF AND ON, MANAGED AT HOME. LOOKS WELL. NO CONCERNS NOTED. PORT WITH BRISK BLOOD RETURN, FLUSHED WITH 20ML NORMAL SALINE AND HEPARIN FLUSH. SCHEDULED TO RETURN AGAIN IN 5 WEEKS. DISMISSED IN STABLE CONDITION.
== END ==
LOC: OPONC 11:22
PROVIDERS: ATTEND Specialist
DX: Z45.2 Encounter for adjustment and management of vascular access device (principal); Q05.9 Spina bifida, unspecified

== ENCOUNTER → 2020-11-22 | Outpatient (CLI) | payer OTHER ==
[2020-11-22 11:30] VITALS: BP 122/74
--- NOTE | 2020-11-22 11:30 | NUR ---
HERE FOR Q6W PORT FLUSH/MAINTENANCE. LOOKS WELL. REPORTS DOING WELL BUT FEELS MAY HAVE A LITTLE UTI WHICH IS A RECURRENT ISSUE FOR PT. DENIES N/V/FEVER/CHILLS. PORT ACCESSED WITHOUT DIFFICULTY, BRISK BLOOD RETURN, FLUSHED WITH 20ML NORMAL SALINE THEN PORT FLUSH AND DEACCESSED. DISMISSED IN STABLE CONDITION. SCHEDULED TO RETURN AGAIN ON 12/07.
== END ==
LOC: OPONC 13:39
PROVIDERS: ATTEND Specialist
DX: Z45.2 Encounter for adjustment and management of vascular access device (principal); Q05.9 Spina bifida, unspecified

== ENCOUNTER → 2021-01-03 | Outpatient (CLI) | payer OTHER ==
--- NOTE | 2021-01-03 11:25 | NUR ---
PT IN FOR HER Q6W PORT FLUSH. REPORTS DOING OK, NO RECENT ED VISITS, NO C/O URINARY ISSUES TODAY. PORT ACCESSED WITHOUT DIFFICULTY, BRISK BLOOD RETURN OBTAINED. FLUSHED PER PROTOCOL. DISMISSED IN STABLE CONDITION. SCHEDULED TO RETURN AGAIN ON .
== END ==
LOC: OPONC 11:53
PROVIDERS: ATTEND Specialist
DX: Z45.2 Encounter for adjustment and management of vascular access device (principal); Q05.9 Spina bifida, unspecified

== ENCOUNTER 2021-02-07 09:12 | Inpatient (IN) | payer OTHER ==
[~2021-02-07] VITALS: Ht 142.2 cm; Wt 68.6 kg
--- NOTE | ~2021-02-07 | HC ---
[facility] [place] [address] CONSULTATION Name: JEFE DIAZ Room #: 357-P ADM IN M.R.#: [id number] Admission: 02/07/21 Attend Phys: Tripp Modi MD Discharge: Date of : 76 Report #: [id number] THIS REPORT FOR: cc: Ga Nowak MD, Daniel J. MD Smithson, David G. MD ~ DATE OF SERVICE: 02/14/2021 HISTORY OF PRESENT ILLNESS: The patient is a 40-year-old white female with spina bifida, anemia of chronic disease, hypertension, presented with increased low back pain, nausea and vomiting. She was febrile. She was noted to have a right hydronephrosis with a right ureteral calculus. She underwent emergent nephrostomy tube placement on 02/08. Urology has seen her and recommended treatment of the infection with later stone extraction. She was seen by GI, noted to have mild diversion colitis, prior flex sig and EGD showed a small hiatal hernia. She is being treated for urosepsis with multiple building performance consultant physicians involved and is on IV antibiotics as per Infectious Disease. The recommendation is for a short acute in-hospital inpatient rehabilitation stay with her medical complexity and her functional decline post the acute infection. PAST MEDICAL HISTORY: Includes the spina bifida. She is paraplegic. She has had a diverting colostomy, neurogenic bladder, status post cystectomy with ileal conduit. She had prior decubitus ulcer I and D in 2018 and does not note any active significant wound care issues at this time, history of Asperger's disease. Past history also includes seizure disorder, several orthopedic surgeries, spina bifida with myelomeningocele, asthma, chronic UTIs. MEDICATIONS: Please see the full medication listing. ALLERGIES: LATEX, GENTAMICIN, AND LEVOFLOXACIN. SOCIAL HISTORY: Lives in a house with her mother. No steps with ramp. She did scoot transfers, bed to wheelchair, could propel the wheelchair short distances. This is a manual wheelchair. Mother is apparently retired and is of good assistance. REVIEW OF SYSTEMS: No current complaints of chest pain, shortness of breath or abdominal discomfort. PHYSICAL EXAMINATION: GENERAL: A 40-year-old female, short stature on a specialty mattress. She is alert, pleasant, oriented, good historian. VITAL SIGNS: Temperature 36.8, pulse 107, respirations 18, blood pressure 116/77. HEENT: Facies appeared symmetric. EXTREMITIES: She has functional range of motion of both [place] [address] CONSULTATION Name: JEFE DIAZ Room #: 357-P [facility] ..#: [id number] Admission: 02/07/21 Attend Phys: Tripp Modi MD Discharge: Date of : 76 Report #: [id number] some decrease in range with her shoulders. Strength is probably a grade 4-/5 of both upper extremities. She has a sensory level at about T10. She has the diverting colostomy and ileostomy anterior abdomen and over the right flank she has the nephrostomy tube in place. Lower extremities, no focal calf swelling. She does not have any volitional movement and no sensation is noted. Reasonable range of motion with limited testing. Functionally, she has been mod assist to attempt bed to chair with attempted scooting, rolling right to left is mod assist and bed mobility in OT is mod assist. ASSESSMENT: A 40-year-old white female with the following problem list: 1. Spina bifida with paraplegia. 2. Urinary sepsis. 3. Right hydronephrosis with right ureteral calculus, status post emergent nephrostomy tube 02/08. 4. Ileal conduit. 5. Diverting colostomy. 6. Hypertension. 7. Anemia. She does have diversion colitis of the rectal pouch and a small hiatal hernia. 8. History of seizure disorder. 9. Depression. 10. Asthma. 11. Hypothyroidism. 12. Moderate protein calorie malnutrition. 13. Past history of an infected decubitus ulcer. 14. Generalized weakness and debilitation. PLAN: The patient has had a significant functional decline from her premorbid status. She has considerable medical complexity with multiple building performance consultant physician involvement. She is very motivated to return back to the home setting when she is stronger and able to again perform her transfers and her basic ADLs at her prior functional level. Would agree that an acute in-hospital rehabilitation chapa stay would be most appropriate for this patient. This would allow the multiple building performance consultant physicians to continue to follow with her at the same time giving her the intensive rehabilitation, which she is a candidate for and which she would have the tolerance for in maximizing her functional independence, so she could return back to the home setting. Thank you for asking us to assist in this patient's care. By: [id number] Sam Palomo MD /nt
[2021-02-07 09:17] VITALS: BP 141/81
[2021-02-07 10:14] LABS: ABSOLUTE NEUTROPHILS 12.6 thou/uL (1.4-8.2); BASOPHILS 0.4 % (0.0-2.0); EOSINOPHILS 0.1 % (0.0-3.0); HEMATOCRIT 25.8 % (37.0-47.0); HEMOGLOBIN 7.9 gm/dL (12.0-15.0); LYMPHOCYTES 2.8 % (24.0-44.0); MCH 21.3 pg (26.0-34.0); MCHC 30.7 g/dL (28.0-37.0); MCV 69.4 fL (80.0-100.0); MONOCYTES 4.2 % (1.0-8.0); PLATELET COUNT 388 thou/uL (150-400); POLYS 92.5 % (36.0-66.0); RBC 3.71 mil/uL (4.20-5.00); RDW 18.8 % (10.5-14.5); WBC 13.6 thou/uL (4.0-11.0)
[2021-02-07 10:28] LABS: CALCIUM 8.3 mg/dL (8.5-10.1); CREATININE 0.6 mg/dL (0.6-1.0)
[2021-02-07 10:30] LABS: POTASSIUM 2.9 mmol/L (3.5-5.1)
[2021-02-07 10:31] LABS: TOTAL BILIRUBIN 0.4 mg/dL (0.2-1.0); TOTAL PROTEIN 7.5 g/dL (6.4-8.2)
[2021-02-07 11:02] LABS: ALBUMIN 2.9 g/dL (3.4-5.0)
[2021-02-07 12:35] LABS: ANISOCYTOSIS 1+; HYPOCHROMASIA 2+; LARGE PLATELETS OCCASIONAL; MICROCYTES 2+; POIKILOCYTOSIS 1+
[2021-02-07 13:56] LABS: URINE BILIRUBIN NEGATIVE (Negative); URINE BLOOD 1+ (Negative); URINE CLARITY CLEAR; URINE COLOR YELLOW; URINE GLUCOSE-RANDOM* NEGATIVE (Negative); URINE KETONES 1+ (Negative); URINE NITRITE-REFLEX NEGATIVE (Negative); URINE PROTEIN (DIPSTICK) NEGATIVE (Negative); URINE UROBILINOGEN 0.2 E.U./dl (0.2-1.0)
[2021-02-07 14:25] LABS: URINE LEUKOCYTES-REFLEX 3+ (Negative)
[2021-02-07 14:28] LABS: FOLIC ACID 7.5 ng/mL (8.6-58.9)
--- NOTE | 2021-02-07 14:38 | NUR ---
PT TO IT VIA RN. FAMILY AND BELONGINGS FOLLOW PATIENT. WILL AWAIT BED PLACEMENT
[2021-02-07 15:05] LABS: CASTS None Seen /LPF (None Seen); SQUAMOUS 0-3 Few /LPF (0-3); URINE WBC-REFLEX >25 Many /HPF (0-5)
[2021-02-07 15:06] LABS: BACTERIA-REFLEX 1-9 Few /HPF (None Seen); CRYSTALS None Seen /LPF (None Seen); URINE RBC 3-10 Few /HPF (NONE SEEN)
--- NOTE | 2021-02-07 15:14 | EKG ---
[place] [address] [facility] [place] [address] ELECTROCARDIOGRAM REPORT Name: JEFE DIAZ Room #: 170-5 ADM IN M.R.#: [id number] Admission: 02/07/21 Attend Phys: Tripp Modi MD Discharge: Date of : 76 Report #: [id number] [facility] ED Test Date: 2021-02-07 Test Time: 10:15:24 Pat Name: JEFE DIAZ Department: Room: 170 Gender: F Hims Manager: DORCAS : 1980 Requested By: Lul Valadez Order Number: [id number] MD: Gideon Dukes Measurements Intervals [place] Rate: 135 P: 32 UT: 145 QRS: 44 QRSD: 62 T: -15 QT: 323 QTc: 485 Interpretive Statements Sinus tachycardia Probable left atrial enlargement Low voltage, precordial leads Abnormal R-wave progression, early transition Borderline T abnormalities, diffuse leads Compared to ECG 08/07/2020 11:52:46 Low QRS voltage now present T-wave abnormality still present Electronically Signed On 02-07-2021 15:14:17 CDT by Gideon Dukes [email or web address] <ELECTRONICALLY SIGNED> By: Gideon Dukes MD, FACC 02/07/21 1514 1015 1015 Gideon Dukes MD, FACC /EPI
--- NOTE | 2021-02-07 15:14 | EKG ---
[address] [address] ELECTROCARDIOGRAM REPORT Name: JEFE DIAZ Room #: 170-5 ADM IN M.R.#: [id number] Admission: 02/07/21 Attend Phys: Tripp Modi MD Discharge: Date of : 76 Report #: [id number] [facility] ED Test Date: 2021-02-07 Test Time: 09:46:42 Pat Name: JEFE DIAZ Department: Room: 170 5 Gender: F Ladle Filler: DORCAS : 1980 Requested By: Tripp Modi Order Number: [id number] MD: Gideon Dukes Measurements Intervals [place] Rate: 64 P: 83 MA: 173 QRS: 101 QRSD: 139 T: -43 QT: 398 QTc: 411 Interpretive Statements Atrial-ventricular dual-paced rhythm No further analysis attempted due to paced rhythm Baseline wander in lead(s) V6 Compared to ECG 08/07/2020 11:52:46 Sinus tachycardia no longer present T-wave abnormality no longer present Electronically Signed On 02-07-2021 15:14:11 CDT by Gideon Dukes [email or web address] <ELECTRONICALLY SIGNED> By: Gideon Dukes MD, FACC 02/07/21 1514 Gideon Dukes MD, [facility] /EPI
[2021-02-07 16:35] LABS: % SATURATION 3 % (20-39); IRON 10 ug/dL (50-170); TIBC 307 ug/dL (250-450)
[2021-02-07 18:44] VITALS: BP 108/68
--- NOTE | 2021-02-07 18:46 | NUR ---
ADMSSION NOTE: PT CAME UP FROM IR AFTER GETTING A RIGHT NEPHROSTOMY TUBE. DRIANAGE IS DARKISH COLOR LOOKING. ALERT AND ORIUENTED X4. MEMORIAL MARKER DESIGNER SHOWING SINUS TACHY. ON ROOM AIR, NOSIGNS OF DISTRESS. PT HAS A UROSTOMY AND COLOSTOMY. PT IS PARAPLEGIC, LEGS CONTRACTED. SACRUM RED, REPOSITION EVERY 2HOURS. PAIN MED GIVEN FOR PAIN. DR. MARCOS MADE AWARE ABOUT PT UPDATED HOME MED LIST. PT MOM IN THE ROOM VISITING. FALL PRECAUTIONS IN PLACE. DENIES NEEDS TEE.
[2021-02-07 19:25] VITALS: BP 88/56
[2021-02-08] VITALS (7 sets, daily range): BP systolic 93–125; BP diastolic 58–77
[2021-02-08 07:07] LABS: BASOPHILS 0.4 % (0.0-2.0); HEMOGLOBIN 6.7 gm/dL (12.0-15.0)
[2021-02-08 07:08] LABS: ABSOLUTE NEUTROPHILS 16.7 thou/uL (1.4-8.2); EOSINOPHILS 0.8 % (0.0-3.0); HEMATOCRIT 22.4 % (37.0-47.0); LYMPHOCYTES 2.6 % (24.0-44.0); MCH 21.2 pg (26.0-34.0); MCHC 29.8 g/dL (28.0-37.0); MCV 71.3 fL (80.0-100.0); MONOCYTES 4.6 % (1.0-8.0); POLYS 91.6 % (36.0-66.0); RBC 3.14 mil/uL (4.20-5.00); RDW 19.6 % (10.5-14.5); WBC 18.3 thou/uL (4.0-11.0)
[2021-02-08 07:10] LABS: CREATININE 0.5 mg/dL (0.6-1.0); MAGNESIUM 1.7 mg/dL (1.8-2.4); POTASSIUM 3.5 mmol/L (3.5-5.1)
[2021-02-08 07:22] LABS: PLATELET COUNT 221 thou/uL (150-400); URINE BILIRUBIN NEGATIVE (Negative); URINE BLOOD 3+ (Negative); URINE COLOR YELLOW; URINE GLUCOSE-RANDOM* NEGATIVE (Negative); URINE KETONES 1+ (Negative); URINE PROTEIN (DIPSTICK) 1+ (Negative); URINE SPECIFIC GRAVITY 1.015 (1.005-1.035); URINE UROBILINOGEN 0.2 E.U./dl (0.2-1.0)
[2021-02-08 07:29] LABS: URINE LEUKOCYTES-REFLEX 2+ (Negative); URINE NITRITE-REFLEX POSITIVE (Negative)
[2021-02-08 07:30] LABS: URINE CLARITY SLIGHTLY CLOUDY
[2021-02-08 07:47] LABS: BACTERIA-REFLEX >30 Many /HPF (None Seen); CASTS None Seen /LPF (None Seen); CRYSTALS None Seen /LPF (None Seen); SQUAMOUS 0-3 Few /LPF (0-3)
[2021-02-08 07:48] LABS: URINE WBC-REFLEX >25 Many /HPF (0-5)
--- NOTE | 2021-02-08 08:36 | NUR ---
WOUND CARE CONSULT; THE PATIENT WAS ASSESSED. THE LEFT BUTTOCKS HAS A BRUISE WITH ERYTHEMA CONSISTANT WITH A DEEP TISSUE INJURY (PLEASE SEE PICTURE) THERE IS NO DRAINAGE AND THE SKIN IS INTACT AT THIS TIME. THE PATIENT IS HYPERVIGILANT BECAUSE OF A PREVIOUS INJURY THAT TOOK A LONG TIME TO HEAL. RECCOMMENDATIONS; -Q2H TURNING AT A (MINIMUM). -BARRIER CREAM TO THE AREA AND BILATERAL BUTTOCKS/SACRUM BID. -ADD A LOW AIR LOSS PUMP TO THE BED. DISCUSSED WITH RN.
--- NOTE | 2021-02-08 09:00 | NUR ---
PROGRESS PT A/O X4. UROSTOMY INTACT DRAINING LARGE AMOUNT OF CLEAR YELLOW URINE. NEPHROSOTOMY TO RIGHT FLANK INTACT DRAINED 125CC OF BLOOD TINGED URINE. COLOSTOMY INTACT NO STOOL BUT LOTS OF AIR MIRALAX GIVEN, BS POSITIVE. BLOOD CULTURES POSITIVE FOR GRAM POSITIVE COCCI CONSISTENT WITH STREP NOTIFIED VIA SECURE HIPPA ANSWER LINE, RETURNED CALL AND ORDERED TO CONTINUE CURRENT ANTIBIOTICS. LEFT CHEST PORT INTACT INFUSING IVF'S ORDERED. PT REPOSITIONED FREQUENTLY, SKIN C/D/I. CONTINUE POC.
--- NOTE | 2021-02-08 14:50 | NUR ---
Nutrition: pt admittted with kidney stones, UTI, S/P nephrostomy tube placement for ureteral stone/hydronephrosis. Seen due to wound risk which per wound care is DTI left buttock-skin is intact. PMH: Spina bifida, left ischial wound (healed), paraplegia, urostomy, colostomy. Generally eats well although at present low appetite/nausea. Stable weights. Assisted with meal ordering as pt preferring button bradder meal options at present. Obtained requested snacks from [facility]. Denies supplement offer. Can follow for improved po trends but consider low nutrition risk.
--- NOTE | 2021-02-08 15:13 | NUR ---
Patient with hx of spina bifida. Admits from home with UTI. Patient A/Ox4. Her wc in room. she reports independent with transfers at home. All needs on one level. She lives with mother who is able to assist if needed. Mom at bedside. She reports patient reluctant to come to hospital but glad patient admitted. mom reports patient was so ill she does not recall all of yesterdays events. There is anticipation of patient and mom of need for home infusion. Patient has rec in past. Have used [facility] and [facility] infusion. Dr Nowak has seen patient in past. Patient agreeable to contact [facility] care. Sp with intake. They are full until next . Discussed patient request a vacinated RN to come to home. Faxed clinical information for review.
[2021-02-08 22:35] LABS: HEMATOCRIT 27.2 % (37.0-47.0); HEMOGLOBIN 8.3 gm/dL (12.0-15.0); MCH 22.1 pg (26.0-34.0); MCHC 30.6 g/dL (28.0-37.0); RBC 3.77 mil/uL (4.20-5.00); RDW 20.2 % (10.5-14.5); WBC 15.9 thou/uL (4.0-11.0)
--- NOTE | 2021-02-09 01:11 | NUR ---
PT RESTING IN BED WATCHING TV OR ON PHONE OR VISITING WITH HER MOTHER. PALE SKIN TONE. UROSTOMY, NEPHROSTOMY AND COLOSTOMY INTACT TO DRAINAGE. L CHEST PORT INTACT. LUNGS DIMINISHED, PALE SKIN TONE, BLE EDEMA. PT PARA BLE. PT REPORTS HISTORY OF BEING ABLE TO ASSIST WITH TRANSFERS BUT FATIGUED AND WEAK AT THIS TIME. PT REPORTED NAUSEA AND PROVIDED PRN, SNACK PROVIDED. PT HAS LIQUID STOOL IN COLOSTOMY, PT PROVIDED PRN COLACE AND MIRALAX ORDERED. BARRIER CREAM TO REDENNED COCCYX. STAFF ASSISTS WTIH REPOSITIONING. PRN FOR BACK HEAD AND UROSTOMY SITE. ELECTROLYTE PROTOCOL POTASSIUM AND MAGNESIUM PROVIDED.
[2021-02-09 04:04] VITALS: BP 121/74
[2021-02-09 07:07] VITALS: BP 129/83
[2021-02-09 07:09] LABS: HEMATOCRIT 26.8 % (37.0-47.0); HEMOGLOBIN 8.5 gm/dL (12.0-15.0); MCH 22.5 pg (26.0-34.0); MCHC 31.5 g/dL (28.0-37.0); MCV 71.6 fL (80.0-100.0); RBC 3.75 mil/uL (4.20-5.00); RDW 19.8 % (10.5-14.5); WBC 13.7 thou/uL (4.0-11.0)
[2021-02-09 07:31] LABS: CREATININE 0.4 mg/dL (0.6-1.0)
[2021-02-09 07:45] LABS: POTASSIUM 2.9 mmol/L (3.5-5.1)
[2021-02-09 11:06] VITALS: BP 130/82
--- NOTE | 2021-02-09 14:51 | NUR ---
WOUND CARE F/U; THE PATIENT MOTHER IS IN THE ROOM. THE WOUND IS WORSE TODAY. THIS WAS A DEEP TISSUE INJURY THAT SHE HAD ON ADMISSION AND NOW CONTINUES TO DETERIORATE WHICH IS COMMON. THE PATIENT IS LAYING ON [place]KIN AND 2 BRIEFS UNDER HER AND THE HEAD OF THE BED IS GREATER THAN 30 DEGREES. RECCOMMENDATIONS CHANGE TO ZGUARD AND ONLY 1 PAD UNDER HER AT ANYTIME. DISCUSSED WITH GARY
[2021-02-09 15:12] VITALS: BP 128/84
--- NOTE | 2021-02-09 16:46 | NUR ---
MIMI reviewed chart and spoke with nursing and attending physician. Pt with neprostomy tube in place. Pt is on IV abx. No weekend discharge planned. MIMI notified that [facility] cannot guarantee that a vaccinated RN will provide HH services. [facility] does not require staff to be vaccinated for COVID. [facility] to notify pt's mother. SW met with pt at bedside to provide update. Pt verbalized understanding and is agreeable with considering alternate HH agencies if needed. SW to follow up with [facility] on Friday. SW to updated pt and her mother on Friday and will discuss alternate HH agencies if needed. MIMI is following and is available to assist as needed with discharge planning.
--- NOTE | 2021-02-09 18:32 | NUR ---
assumed care ofpt at 0700. pt aox4, anxious. family at bedside, asking many questions. gi consult today. labs showing improvement. up to chair with PT. nephrostomy and urostomy in place. small output in colostomy. vitals stable. waiting on GI orders. medical records from [facility] pending.
[2021-02-09 19:00] VITALS: BP 128/82
--- NOTE | 2021-02-10 03:22 | NUR ---
DR GOMEZ WROTE AN ORDER FOR A MICROBIOLOGY WORK-UP ON THE LOW COLONY COUNT URINE CULTURE FROM 02/08. SPOKE WITH LAB. NO ABILTY TO ANWSER QUESTION OF WHAT NEEDS TO BE ORDERED OR HOW TO GET THIS DONE. REPORT FOR AM HAND OFF TO INCLUDE THIS INFORMATION.
[2021-02-10 05:01] VITALS: BP 127/83
[2021-02-10 05:41] LABS: HEMATOCRIT 26.7 % (37.0-47.0); HEMOGLOBIN 8.4 gm/dL (12.0-15.0); MCH 22.5 pg (26.0-34.0); MCHC 31.6 g/dL (28.0-37.0); MCV 71.3 fL (80.0-100.0); PLATELET COUNT 262 thou/uL (150-400); RBC 3.74 mil/uL (4.20-5.00); RDW 20.3 % (10.5-14.5); WBC 15.5 thou/uL (4.0-11.0)
[2021-02-10 05:56] LABS: CALCIUM 7.1 mg/dL (8.5-10.1); CREATININE 0.4 mg/dL (0.6-1.0); POTASSIUM 3.2 mmol/L (3.5-5.1)
[2021-02-10 07:20] VITALS: BP 142/85
[2021-02-10 11:31] VITALS: BP 127/83
[2021-02-10 12:59] LABS: ABSOLUTE NEUTROPHILS 13.2 thou/uL (1.4-8.2); METAMYELOCYTES 1 %; MYELOCYTES 1 %
[2021-02-10 13:00] LABS: ANISOCYTOSIS 2+; HYPOCHROMASIA 2+; MICROCYTES 1+
[2021-02-10 15:03] VITALS: BP 126/84
--- NOTE | 2021-02-10 19:30 | NUR ---
RN ASSUMED PT'S CARE AT 0700-1900PM, PT IS A&OX4, PT IS VERY WEAK, PT NEEDS HELP MEALS AND CHANGE ADL (POSITION ), PT IS CONTINUING IV ABX AND IV FLUID, AND WOUND CARE , RN HAS CALLED UROLOGY DR TO REPORT PT'S R NEPHROSTOMY TUBE NO URINE COMIMG IN THE BAG, NEW ORDER TO FLUSH 10ML NS PRN , R NEPHROSTOMY TUBE HAS 200ML URINE BY 1800PM, PT'S L COLOSTOMY AND R UROSTOMY HAVE A GOOD OUT PUT, PT DENIES PAIN AND SOB AT THIS TIME.PT IS POOR EATING AT MEAL TIME.
[2021-02-10 19:46] VITALS: BP 132/70
--- NOTE | 2021-02-11 00:43 | NUR ---
PT RESTING IN BED, PLEASANT TALKATIVE, REMAINS PALE. IVF INTACT. NEPHROSTOMY, UROSTOMY, COLOSTOMY ALL INTACT AND DRAINING. PT CALLS FOR ASSISTANCE WITH REPOSITIONING. BLE EDEMA AND ELEVATED. BARRIER CREAM TO COCCYX REDENNED AREAS. PT REQUESTED PRN FOR NAUSEA AND PAIN PRIOR TO SLEEP 2300ISH. PT REPORTS INTERMITTENT SPASMS OF PAIN IN R BACK. BLUNTED AFFECT. BED ALARM ON.
[2021-02-11 03:19] VITALS: BP 122/78
[2021-02-11 06:15] LABS: HEMATOCRIT 26.8 % (37.0-47.0); HEMOGLOBIN 8.4 gm/dL (12.0-15.0); MCH 22.1 pg (26.0-34.0); MCHC 31.6 g/dL (28.0-37.0); MCV 70.2 fL (80.0-100.0); RBC 3.81 mil/uL (4.20-5.00); WBC 13.5 thou/uL (4.0-11.0)
[2021-02-11 06:19] LABS: CALCIUM 7.5 mg/dL (8.5-10.1); CREATININE 0.4 mg/dL (0.6-1.0); POTASSIUM 3.4 mmol/L (3.5-5.1)
[2021-02-11 07:37] VITALS: BP 125/82
[2021-02-11 11:23] VITALS: BP 126/86
--- NOTE | 2021-02-11 12:31 | NUR ---
CARE ASSUMED THIS AM, PT ALERT AND ORIENTED X4. DENIES CHEST PAIN, NUMBNESS AND TINGLING. TYLENOL GIVEN FOR HEADACHE. PT REPOSITION EVERY 2 HOURS. PT UP IN HER WHEELCHAIR WITH 2 PERSON ASSIST. SACRUM WOUND CLEANED AND BARRIER CREAM APPLIED. R NEPHROSTOMY TUBE IN PLACE, DRAINING OUTPUT. UROSTOMY AND COLOSTOMY IN PLACE. PT MOM VISITING, UPDATED ABOUT CARE. FALL PRECAUTIONS IN PLACE, WILL CONTINUE TO MONITOR
[2021-02-11 15:00] VITALS: BP 109/75
[2021-02-11 19:20] VITALS: BP 126/76
--- NOTE | 2021-02-11 19:43 | NUR ---
PT WATCHING TV. SMILING AT TV. TALKATIVE WITH STAFF. NEPHROSTOMY DD, COLOSTOMY INTACT, UROSTOMY DRAINING AND TO DD. BLE EDEMA. TUBI PRINTED CIRCUIT BOARDS INSPECTOR INTACT. PT VERBALIZED UNDERSTANDING OF NPO P MN. PT ASKED IF SHE COULD STILL HAVE HER IV MEDICATIONS AND SHE WAS TOLD YES. CONSENT FOR EGD IN AM, COMPLETED. PTS MOTHER IS REQUESTING DR CALL HER AFTER COMPLETION, WILL PASS ON TO DAY NURSE. PT C/O HEADACHE AND PRN WILL BE PROVIED. PSYCH CONSULT CALLED.
[2021-02-12] VITALS (7 sets, daily range): BP systolic 112–135; BP diastolic 64–81
[2021-02-12 04:33] LABS: ABSOLUTE NEUTROPHILS 7.8 thou/uL (1.4-8.2); BASOPHILS 0.8 % (0.0-2.0); EOSINOPHILS 3.7 % (0.0-3.0); HEMATOCRIT 25.9 % (37.0-47.0); HEMOGLOBIN 8.5 gm/dL (12.0-15.0); LYMPHOCYTES 14.5 % (24.0-44.0); MCH 23.4 pg (26.0-34.0); MCHC 32.9 g/dL (28.0-37.0); MCV 71.1 fL (80.0-100.0); MONOCYTES 12.7 % (1.0-8.0); PLATELET COUNT 267 thou/uL (150-400); POLYS 68.3 % (36.0-66.0); RBC 3.65 mil/uL (4.20-5.00); RDW 20.6 % (10.5-14.5); WBC 11.5 thou/uL (4.0-11.0)
[2021-02-12 04:38] LABS: ALBUMIN 1.9 g/dL (3.4-5.0); CALCIUM 7.3 mg/dL (8.5-10.1); CREATININE 0.3 mg/dL (0.6-1.0); TOTAL BILIRUBIN 0.2 mg/dL (0.2-1.0); TOTAL PROTEIN 5.7 g/dL (6.4-8.2)
[2021-02-12 04:40] LABS: POTASSIUM 2.7 mmol/L (3.5-5.1)
--- NOTE | 2021-02-12 04:42 | NUR ---
POTTASIUM 2.7 FOLLOWING PROTOCOL, IV.
--- NOTE | 2021-02-12 09:29 | 2DMMODE ---
[facility] [place] [address] 2 D/M-MODE ECHOCARDIOGRAM Name: JEFE DIAZ Room #: 357-P ADM IN M.R.#: [id number] Admission: 02/07/21 Attend Phys: Tripp Modi MD Discharge: Date of : 76 Report #: [id number] THIS REPORT FOR: cc: Ga Nowak MD, Daniel J. MD Lundgren, Craig H. MD [facility] ~ APPROVED REPORT Study performed: 02/12/2021 08:26:50 EXAM: Comprehensive 2D, Doppler, and color-flow Echocardiogram Patient Location: Bedside Room #: 357 Status: routine BSA: 1.41 HR: 109 bpm Rhythm: Tachycardia Other Information Study Quality: Technically Difficult Technically limited study due to inability to position patient. Indications Hypertension/HDD Aortic Valve AoV Peak Jose Roberto.: 1.13 m/s AO Peak Gr.: 5.09 mmHg LVOT Max P.70 mmHg LVOT Max V: 1.08 m/s Left Ventricle The left ventricle is normal size. There is normal LV segmental wall motion. There is normal left ventricular wall thickness. Left ventricular systolic function is normal. The left ventricular ejection fraction is within the normal range. LVEF is 55-60%. This study is not technically sufficient to allow evaluation of the LV diastolic function. Right Ventricle The right ventricle is normal size. The right ventricular systolic function is normal. [facility] [address] [place] [address] 2 D/M-MODE ECHOCARDIOGRAM Name: JEFE DIAZ Room #: 357-P ADM IN M.R.#: [id number] Admission: 02/07/21 Attend Phys: Tripp Modi MD Discharge: Date of : 76 Report #: [id number] [facility] The left atrium size is normal. The right atrium size is normal. Aortic Valve The aortic valve is normal in structure. No aortic regurgitation is present. There is no aortic valvular stenosis. Mitral Valve The mitral valve is normal in structure. There is no mitral valve regurgitation noted. No evidence of mitral valve stenosis. Tricuspid Valve The tricuspid valve is normal in structure. There is no tricuspid valve regurgitation noted. Pulmonic Valve The pulmonary valve is normal in structure. There is no pulmonic valvular regurgitation. Great Vessels The aortic root is normal in size. IVC is normal in size and collapses >50% with inspiration. Pericardium There is no pericardial effusion. <Conclusion> Left ventricular systolic function is normal. There is normal LV segmental wall motion. LVEF is 55-60%. The aortic valve is normal in structure. No aortic regurgitation or stenosis The mitral valve is normal in structure. No mitral valve regurgitation. Pulmonary artery pressure could not be reliably ascertained There is no pericardial effusion. <ELECTRONICALLY SIGNED> By: Rober Betts MD, [facility] 02/12/21927 7 7 Rober Betts MD, [facility] /INF
--- NOTE | 2021-02-12 16:10 | NUR ---
MIMI reviewed chart and spoke with nursing and attending physician. Pt is progressing towards goals for discharge. Pt had EGD and flex sig today. Pt remains on IV abx. Psych consulted. MIMI met with pt and her mother at bedside to provide update and discuss discharge plan. Pt's mother requests that a vaccinated HH RN come to the house. MIMI discussed that [facility] cannot guarantee. Additional HH options provided. Pt has also used [facility] in the past. Pt and mother request HH referral to be sent to [facility]. SW notified [facility] liaison. MIMI faxed home infusion referral to [facility] per pt/family request. Pt and mother are aware of need for home IV infusion until surgery. Pt will go home with nephrostomy tube in place until surgery. MIMI notified [facility] Infusion liaison of new referral. Insurance coverage to be checked. ID starting pt on new IV abx this evening. MIMI is following to assist as needed with discharge planning.
--- NOTE | 2021-02-12 17:57 | NUR ---
PATIENT DID NOT RECEIVE ENSURE SINCE KITCHEN IS OUTOF STOCK.
[2021-02-13 04:06] VITALS: BP 131/79
[2021-02-13 04:45] LABS: CALCIUM 7.8 mg/dL (8.5-10.1); CREATININE 0.6 mg/dL (0.6-1.0)
[2021-02-13 04:47] LABS: POTASSIUM 2.8 mmol/L (3.5-5.1)
--- NOTE | 2021-02-13 04:51 | NUR ---
PT RECEIVED CRITICAL LAB VALUE. POTASSIUM-2.8. ELECTROLYTE PROTOCOL FOLLOWED.
[2021-02-13 04:54] LABS: HEMOGLOBIN 8.3 gm/dL (12.0-15.0); MCH 22.6 pg (26.0-34.0); MCV 70.6 fL (80.0-100.0); PLATELET COUNT 337 thou/uL (150-400); RBC 3.69 mil/uL (4.20-5.00); WBC 12.4 thou/uL (4.0-11.0)
[2021-02-13 06:05] LABS: ABSOLUTE NEUTROPHILS 8.4 thou/uL (1.4-8.2); ANISOCYTOSIS 2+; HYPOCHROMASIA 2+; METAMYELOCYTES 1 %; MICROCYTES 1+; MYELOCYTES 1 %
[2021-02-13 07:04] VITALS: BP 119/79
--- NOTE | 2021-02-13 14:54 | NUR ---
MIMI reviewed chart and spoke with nursing and attending physician. Pt remains on IV abx and has nephrostomy tube in place. Awaiting final ID recommendation for home IV abx. MIMI notified by Mak da silva that pt is covered at 100% for home IV abx. Mak da silva spoke with pt and her mother this morning and will be onsite this afterrnoon to meet with pt and provide education. [facility] liaison to meet with pt at bedside today as well. MIMI met with pt at bedside to discuss discharge plan. MIMI discussed post-acute placement v. home with . Pt states that she wants to discharge home. Attending physician recommended [facility] consult. MIMI notified [facility] inventory coordinator to review pt's info and determine if she would be rehab candidate. Consult to be placed at that time. MIMI left voice message for pt's mother, Angie, to provide update and discuss discharge plan. MIMI is following to assist as needed with discharge planning.
[2021-02-13 15:15] VITALS: BP 127/85
--- NOTE | 2021-02-13 16:06 | PATH ---
[facility] [place] [address] PATHOLOGY RPT PROCEDURE Name: NIKI DIAZ Sydni Room #: 357-P ADM IN M.R.#: [id number] Admission: 02/07/21 Date of : 76 Discharge: Report #: [id number] Path Case #: [id number] [facility] Accession Number: [id number] . 01 Material submitted: . PART A: duodenum - DUODENAL BIOPSY R/O C. SPRUE PART B: stomach - ANTRAL BIOPSY R/O H. PYLORI . 01 Clinical history: . ESOPHAGOGASTRODUODENOSCOPY, F/S ANEMIA, RECTAL BLEEDING . 02 Diagnosis: A. Small bowel mucosa, duodenum, rule out celiac sprue, endoscopic biopsy: - No diagnostic abnormalities present. - Negative for villous blunting or increase in intraepithelial lymphocytes. . B. Gastric mucosa, antrum, rule out H. pylori, endoscopic biopsy: - Mild reactive gastropathy. - Negative for intestinal metaplasia or atrophy. - Negative for Helicobacter pylori (properly controlled immunohistochemical stain performed). . (IUV:transportation aide; 02/13/2021) MBR 02/13/2021 1454 Local . 02 Electronically signed: . Ritika Starks MD, Pathologist NPI- [id number] . 01 Gross description: . A. The specimen is received in formalin, labeled "Diaz, Niki, duodenal BX". Received are 2 segments of pale collier tissue ranging in size from 0.3 to 0.4 cm in maximum dimensions. The specimen is submitted entirely in cassette A1. . B. The specimen is received in formalin, labeled "Diaz, Niki, antral BX". Received are 2 segments of pale collier tissue ranging in size from 0.3 to 0.4 cm in maximum dimensions. The specimen is submitted entirely in cassette B1.([facility]; 02/12/2021) [facility] 02/12/2021 1802 Local . 02 Pathologist provided ICD-10: K31.9 . 02 [place] [address] PATHOLOGY RPT PROCEDURE Name: NIKI DIAZ Room #: 357-P [facility] IN .R.#: [id number] Admission: 02/07/21 Date of : 76 Discharge: Report #: [id number] Path Case #: [id number] [facility] . [id number], [id number], [id number] Specimen Comment: A courtesy copy of this report has been sent to [phone], [phone] Specimen Comment: [phone], Specimen Comment: Report sent to , DR GOMEZ / DR MARCOS Performed at: [address], [place] [id number] MD Cisco Barakat MD Phone: [phone] Performed at: [address] [id number] MD Ritika Starks MD Phone: [phone]
[2021-02-13 19:05] VITALS: BP 129/71
[2021-02-14 04:54] VITALS: BP 114/68
--- NOTE | 2021-02-14 05:15 | NUR ---
PT ALERT AND ORIENTED X 4. PT IS EXPERIENCING SOME ANXIETY ABOUT HER COLOSTOMY. PT IS STILL HAVING PAIN AND NAUSEA. VITAL SIGNS STABLE OVERNIGHT. COLOSTOMY, NEPHROSTOMY, & UROSTOMY ALL HAD GOOD OUTPUT.
[2021-02-14 05:24] LABS: HEMATOCRIT 26.2 % (37.0-47.0); HEMOGLOBIN 8.4 gm/dL (12.0-15.0); MCH 22.9 pg (26.0-34.0); MCV 71.6 fL (80.0-100.0); RBC 3.66 mil/uL (4.20-5.00); RDW 21.3 % (10.5-14.5); WBC 12.3 thou/uL (4.0-11.0)
[2021-02-14 05:33] LABS: CALCIUM 7.8 mg/dL (8.5-10.1); CREATININE 0.3 mg/dL (0.6-1.0); POTASSIUM 3.4 mmol/L (3.5-5.1)
[2021-02-14 07:03] VITALS: BP 116/77
[2021-02-14] MEDS ORDERED: XANAX 0.25 MG0.25 MG PO (12:18)
[2021-02-14] MEDS ORDERED: AMPICILLIN 1 GM1 G1 IVPB (12:20)
[2021-02-14] MEDS ORDERED: GABAPENTIN 100100 MG PO (12:45)
[2021-02-14] MEDS ORDERED: VITAMIN B-12500 MCG PO (12:46)
[2021-02-14] MEDS ORDERED: CLOTRIMAZOLE 1%15 G1 TOP (12:46)
[2021-02-14] MEDS ORDERED: HOME MEDICATION PO (12:46)
--- NOTE | 2021-02-14 14:50 | NUR ---
DISCHARGE NOTE: MIMI reviewed chart and spoke with nursing and attending physician. Pt has been accepted to [facility] inpt acute rehab. Pt is medically stable for discharge today. Pt remains on IV abx. MIMI met with pt and her mother at bedside. Lengthy discussion regarding discharge plan. Pt states she does not want to have to stay very long on 5[facility], as she wants to get home before her surgery. MIMI explained that most likely she will be on [facility] for at least 5-7 days. Pt would then be able to d/c home with HH and Home IV abx if needed. Pt and mother verbalized understanding and are agreeable with discharge plan. Pt's mother is going to speak with pt's surgeon, Dr. Sy Rosario at [facility] regarding plan for surgery. Pt has nephrostomy tube in place. MIMI requested radiology images to be uploaded to the [facility] for review. MIMI notified [facility] vocational rehabilitation consultant of pt's discharge orders. MIMI updated [facility] and [facility] home infusion liaison. Rehab CM to follow and assist as needed with discharge planning.
[2021-02-14 15:01] VITALS: BP 125/84
--- NOTE | 2021-02-14 15:25 | NUR ---
PATIENT IS ALERT AND ORIENTED THIS SHIFT. PATIENT WAS GIVEN ANTIBIOTIC AND TOLERATED TREATMENT WELL. PATIENT HAS MADE NO COMPLAINTS OF NAUSEA THIS SHIFT. PATIENT DRESSING TO HER RIGHT BUTTOCK WAS CHANGED. PATIENT SAT UP IN HER WHEEL CHAIR UNTIL AFTER SHE FINISHED EATING HER LUNCH AND THEN WAS TRANSFERRED BACK TO BED. PATIENT TOLERATED TRANSFER WELL. PATIENT HAD HYDROCODONE AT 1326 FOR PAIN IN HER HEAD AND BACK. PATIENT STATES MEDICATION WAS EFFECTIVE. PATIENTS ENTIRE COLOSTOMY SET UP HAS BEEN CHANGED THIS SHIFT.
--- NOTE | 2021-02-15 16:08 | HC ---
[facility] [place] [address] CONSULTATION Name: JEFE DIAZ Room #: 357-P [facility] IN M.R.#: [id number] Admission: 02/07/21 Attend Phys: Tripp Modi MD Discharge: 02/14/21 Date of : 76 Report #: [id number] THIS REPORT FOR: cc: Ga Nowak MD, Daniel J. MD Althoff, Jeffrey R. MD ~ DATE OF SERVICE: 02/12/2021 CHIEF COMPLAINT: Sacral and gluteal pressure ulcerations. HISTORY OF PRESENT ILLNESS: This is a 40-year-old female patient who was admitted on 02/07/2021. She has a history of spina bifida and was admitted with a recurrent urinary tract infection. She has noted to have sacral and gluteal pressure ulcerations. I have been asked to see her with regard to wound care. 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 She has had a previous diverting colostomy and ileal conduit procedure. She has paraplegia, previous kidney stones with nephrostomy tube placement, chronic urinary tract infections. SOCIAL HISTORY: Negative for alcohol or tobacco use. She is accompanied by her mother. MEDICATIONS: Fosamax, diltiazem, probiotic, multivitamin, Tylenol, Keppra, Advil. ALLERGIES: LATEX, GENTAMICIN, AND LEVAQUIN. REVIEW OF SYSTEMS: CONSTITUTIONAL: The patient denies fever, chills or weight loss. NEUROLOGICAL: The patient is paraplegic. Denies new focal weakness or tingling. EYES: The patient denies any visual changes, redness, or drainage. ENT: The patient denies earache, nasal drainage or sore throat. CARDIOVASCULAR: Denies chest pain, palpitations, diaphoresis. PULMONARY: Denies cough or shortness of breath. GASTROINTESTINAL: Denies nausea or abdominal pain. ORTHOPEDIC: The patient is aware of the pressure ulcerations, has limited sensation in the gluteal region. Others systems in her 14-point review systems are negative. PHYSICAL EXAMINATION: VITAL SIGNS: At this time include temperature of 37.2, pulse 97, respiratory rate 20, blood pressure 130/81. GENERAL: This is a somewhat chronically ill[place] [address] CONSULTATION Name: JEFE DIAZ Room #: 357-P [facility] IN M.R.#: [id number] Admission: 02/07/21 Attend Phys: Tripp Moid MD Discharge: 02/14/21 Date of : 76 Report #: [id number] appears in minimal stress. HEENT: Normocephalic. Nose and throat clear. NECK: Supple. LUNGS: Diminished. ABDOMEN: Soft, nontender. BACK: Examination of the back demonstrates what appears to be a nephrostomy tube in place. The sacral region demonstrates deep tissue injury to the right gluteal region and a stage 3 pressure ulceration to the coccyx. Neither have any significant depth or tenderness and neither appeared to be overtly infected. CLINICAL IMPRESSION: 1. Hypertension. 2. History of spina bifida with resulting paraplegia. 3. Severe protein-calorie malnutrition with albumin of 1.9. RECOMMENDATIONS: At this point in time, we will recommend a bordered foam to both areas, Friday, Friday and Friday. She will need q. 2 hour turning positioning. We will place her on Envision low-air loss mattress. She will need aggressive nutritional support. All details have been discussed with the patient and her mother who are both agreeable to current plan of care. I do appreciate being asked to see her in consultation. <ELECTRONICALLY SIGNED> By: Emeka Castro MD 02/15/21 1608 [id number] [id number] Emeka Castro MD /nt
== END 2021-02-14 17:13 | DRG 871 ==
LOC: ER 09:12 → EROBS 12:57 → 3W 12:57
PROVIDERS: Emergency Medicine; Nurse Practitioner; Nurse Practitioner Family; Specialist; ADMIT Hospitalist; ATTEND Hospitalist
DX: A41.81 Sepsis due to Enterococcus (principal); L89.153 Pressure ulcer of sacral region, stage 3; E43 Unspecified severe protein-calorie malnutrition; G82.20 Paraplegia, unspecified; N13.6 Pyonephrosis; F84.5 Asperger's syndrome; G40.909 Epilepsy, unspecified, not intractable, without status epilepticus; J45.909 Unspecified asthma, uncomplicated; I10 Essential (primary) hypertension; F32.9 Major depressive disorder, single episode, unspecified; F41.9 Anxiety disorder, unspecified; E87.6 Hypokalemia; R53.81 Other malaise; E03.9 Hypothyroidism, unspecified; D50.9 Iron deficiency anemia, unspecified; K62.89 Other specified diseases of anus and rectum; K44.9 Diaphragmatic hernia without obstruction or gangrene; K52.9 Noninfective gastroenteritis and colitis, unspecified; S30.0XXA Contusion of lower back and pelvis, initial encounter; Z20.822 Contact with and (suspected) exposure to COVID-19; Z87.442 Personal history of urinary calculi; Q05.9 Spina bifida, unspecified; Z93.3 Colostomy status; Z88.8 Allergy status to other drugs, medicaments and biological substances; Z88.1 Allergy status to other antibiotic agents; Z91.040 Latex allergy status; Z86.14 Personal history of Methicillin resistant Staphylococcus aureus infection; X58.XXXA Exposure to other specified factors, initial encounter; Y93.89 Activity, other specified; Y92.89 Other specified places as the place of occurrence of the external cause; Y99.8 Other external cause status
CPT/HCPCS: 10779; 10879; 62110; 62900; 70005

== ENCOUNTER 2021-02-14 14:29 | Inpatient (IN) | payer OTHER ==
[~2021-02-14] VITALS: Ht 142.2 cm; Wt 54.4 kg
--- NOTE | ~2021-02-14 | PLAN ---
[facility] [place] [address] REHAB UNIT PLAN OF CARE Name: JEFE DIAZ Room #: 506-1 ADM IN M.R.#: [id number] Admission: 02/14/21 Attend Phys: Sam Palomo MD Discharge: Date of : 76 Report #: [id number] THIS REPORT FOR: cc: Ga Nowak MD, Daniel J. MD Smithson,Sam Arboleda MD ~ DATE OF SERVICE: 02/17/2021 PROGRESS NOTE/OVERALL PLAN OF CARE HISTORY OF PRESENT ILLNESS: The patient was seen back in followup. She was seen earlier and was in no distress. Temperature 36.7, pulse 112, respirations 16, blood pressure 107/72. She has paraplegia. She has the colostomy and urostomy that are intact. She also has the nephrostomy. She has been working in therapies with bed mobility, needing assistance and transfers, bed to wheelchair mod assistance with scooting technique. In occupational therapy, lower body dressing is moderate assistance with upper body set-up. ASSESSMENT: A 40-year-old female with the following problem list: 1. Spina bifida with paraplegia. 2. Urinary sepsis. 3. Right hydronephrosis with right ureteral calculus, status post nephrostomy tube 02/08/2021. 4. Diverting colostomy. 5. Anemia with diversion colitis. 6. Depression. 7. Protein calorie malnutrition. 8. Asthma. 9. Migraine headache history. 10. Hypertension. PLAN: The overall plan of care is based on the pre-admission screen and information garnered from therapy assessments. 1. Estimated length of stay is probably around 10 days to 14 days. 2. Medical prognosis is reasonably good. 3. Anticipated interventions include the interdisciplinary acute inpatient rehabilitation program. 4. Anticipated functional outcomes would be for the patient to become modified independent with basic transfers and ADLs and to achieve a functional level similar to her prior status. 5. Discharge destination would be back to her home setting where she lives with her mother who is her caregiver. 6. Expected therapy by discipline includes PT and OT one and one-half hours per day each 5 days a week throughout the duration of the acute inpatient rehabilitation stay. [address] [address] REHAB UNIT PLAN OF CARE Name: JOEJEFE Room #: 506-1 ADM IN ..#: [id number] Admission: 02/14/21 Attend Phys: Sam Palomo MD Discharge: Date of : 78 Report #: [id number] ADDENDUM: The patient's prognosis for significant practical improvement within a reasonable period of time appears good. Given the patient's complex medical condition and the risk of further medical complication, rehabilitation services could not be safely provided at a lower level of care such as a halfway facility. By: 1039 [id number] Sam Palomo MD /nt
[~2021-02-14 14:29] MED LIST changes: +AMPICILLIN 1 GM1 G1 IVPB; +CLOTRIMAZOLE 1%15 G1 TOP; +GABAPENTIN 100100 MG PO; +HOME MEDICATION PO; +VITAMIN B-12500 MCG PO; +XANAX 0.25 MG0.25 MG PO
[2021-02-14 18:10] VITALS: BP 132/80
--- NOTE | 2021-02-14 19:17 | NUR ---
PATIENT IS A 38YEAR-OLD FEMALE WHO WAS TRANSFERED TO REHAB UNIT FROM 3RD FLOOR AT 1700HRS. PATIENT IS ALERT, AND ORIENTED X 3-4, ABLE TO VOICE NEED. PATIENT'S PRIMARY DX IS SPINAL BIFIDA WITH PARAPLEGIA, AND URINARY SEPSIS. PATIENT HAS SINGLE LUMEN PORT-A-CATH TO LEFT CHEST, AND IS USED FOR LAB AND IV MEDS. IV FLUID RUNNING AT 75ML/HR. PATIENT HAS NEPHROSTOMY TUBE TO RIGHT SIDE, TO BE FLUSHED EVERY SHIFT WITH 10CCN/S. SHE ALSO HAS UROSTOMY, AND COLOSTOMY. REPORT STATES PATIENT HAS WOUND TO COCCYX AREA, AND LEFT BUTTOCK, WOUND DRESSED TODAY, AND PICTURE TAKEN BY 3W NURSE PER REPORT. LUNGS WITH DIMINISHED SOUND PER ASUCULTATION IN ALL LOBE. BS+X4, ABD SOFT, NON-TENDER TO TOUCH. PATIENT USE W/C FOR MOBILITY, SHE IS MOD ASSIST FOR TRANSFER, HAS STRENGTH TO UPPER BODY. PATIENT HAS HX OF SEIZURES, ASTHMA, AND SINUS TACHYCARDIA. PATIENT DENIES CHEST PAIN, SHE ACKNOWLEDGES BACK PAIN, BUT DECLINE PAIN MEDICATION AT THIS TIME. "I WILL WAIT TILL CLOSE TO BED TIME TO TAKE IT". PATIENT HAS VOICED NO CONCERN, GOAL IS TO GET STRONGER/BETTER. TUBER SUPERINTENDENT OPERATING IN PLACE TO BLE. NO SIGN OF ACUTE DISTRESS NOTED AT THIS TIME, CALL LIGHT IN REACH, WILL CONTINUE TO MONITOR.
--- NOTE | 2021-02-15 04:45 | NUR ---
ASSUMED CARE AT 1915 OF 02/14. A&OX4, ON ROOM AIR. DENIES SHORTNESS OF BREATH OR CHEST PAIN. ACCESSED PORT-A-CATH TO LEFT CHEST IS PATENT, DRESSING IS CDI. PATIENT IS RECEIVING IV ANTIBIOTIC VIA THIS ACCESS. NO S/S OF ADVERSE REACTION TO ANTIBIOTIC REPORTED BY PATIENT. UROSTOMY IN PLACE AND DRAINING INTO DRAINAGE BAG, CLEAR LIGHT YELLOW URINE NOTED, WITH SOME SEDIMENTS. NEPHROSTOMY TUBE TO RIGHT SIDE IS PATENT AND DRAINING ADEQUATELY, DRESSING IS INTACT. COLOSTOMY BAG IN PLACE AND INTACT. NO BM SO FAR. PICTURES AND MEASUREMENTS OF SACRAL AND BUTTOCK WOUNDS COLLECTED AND PLACED IN CHART. WOUNDS CLEANSED AND OPTIFOAM RE-APPLIED. REMAINS Q2H TURN USING WEDGES WITH REPOSITIONING. SPECIALTY BED IN PLACE. PATIENT TOLERATED ORAL MEDICATION WHOLE WITH THIN LIQUDS, REQUESTED FOR PRN PAIN MEDICATION TO MANAGE HEADACHE. NO SIGNS OF DISTRESS NOTED. FALL PRECAUTIONS IN PLACE, ABLE TO MAKE NEEDS KNOWN. CALL LIGHT WITHIN REACH. WILL CONTINUE TO MONTIOR.
[2021-02-15 05:28] LABS: HEMATOCRIT 26.8 % (37.0-47.0); HEMOGLOBIN 8.5 gm/dL (12.0-15.0); MCHC 31.6 g/dL (28.0-37.0); MCV 72.7 fL (80.0-100.0); RBC 3.69 mil/uL (4.20-5.00); RDW 21.5 % (10.5-14.5); WBC 11.4 thou/uL (4.0-11.0)
[2021-02-15 05:35] LABS: CALCIUM 7.9 mg/dL (8.5-10.1); CREATININE 0.4 mg/dL (0.6-1.0); POTASSIUM 3.7 mmol/L (3.5-5.1)
[2021-02-15 07:15] VITALS: BP 118/83
--- NOTE | 2021-02-15 09:51 | NUR ---
ASSUMED CARE AT 0700. PATIENT IS ALERT AND ORIENTED X4. PATIENT HAS PARAPLEGIA OF THE LOWER EXTREMITIES. PATIENT HAS PORTACATH FOR IV ABT. IV SITE WITHOUT REDNESS OR SWELLING. LUNGS ARE CLEAR AND DEMINISHED. ABD IS SOFT WITH BSX4. PATIENT HAS COLOSTOMY, ILEOSTOMY BOTH BAGS ARE INTACT. PATIENT HAS TUBIGRIPS ON HER LOWER EXTREMITIES. ANTIFUNGAL APPLIED TO LEFT TOES. FALL AND SAFETY PROTOCOLS IN PLACE. DENIES PAIN AT THIS TIME. CONTINUES TO PROGRESS SLOWLY TOWARDS D/C GOALS. WILL CONTINUE TO MONITER.
--- NOTE | 2021-02-15 13:16 | NUR ---
Assess due to RD consult received for rehab admission. Pt with hx spina bifida and DTI to left buttock and coccyx pressure ulcer. Wt has nikia stable around 120 lb-125 lb since 2018. Intake fair 40-50%. While on acute unit, pt initially denied need for oral supplement. Has it ordered for [facility]N admit and would encourge until intake improves >75% all meals. Pt in therapy x 2 attempts to visit. Has MVI, B12, and ferrous sulfate ordered. Folate was depleted on 02/07, 7.5-recommend additional supplement. Place at low nutrition risk with above interventions in place and continue to follow for improvement in meal consumption.
--- NOTE | 2021-02-15 13:22 | NUR ---
Folate level was depleted 02/07, 7.5. Recommend supplmentation
--- NOTE | 2021-02-15 14:02 | NUR ---
PER PT'S MOTHER RAJ: PT LIVES WITH MOTHER IN HOUSE, TAKES 2 SPONGE-BATHS PER DAY, AND CANNOT GET INTO THE SHOWER AT HOME. PT'S MOTHER REQUESTED THAT WE ASSIST HER WITH A SHOWER AND SHAMPOO WHILE SHE IS HERE, AFTER CLARIFYING IF SHOWER IS APPROVED WITH THE NEPHROSTOMY. PT'S MOTHER REPORTED THAT PT IS INDEPENDENT WITH DRESSING HERSELF AT HOME, AND TRANSFERS IN-OUT OF BED AND WC INDEPENDENTLY. SHE DOESN'T AMBULATE, AND INSTEAD USES THE WC FOR ALL MOBILITY. PT IS ABLE TO MANAGE HER COLOSTOMY AND UROSTOMY AT HOME. MOTHER STATED "IF SHE CAN PUSH UP IN THE CHAIR ENOUGH FOR ME TO ASSIST PULLING HER CLOTHING UP, AND IF SHE CAN TRANSFER, WE WILL ESSENTIALLY BE AT THE LEVEL SHE WAS AT HOME." PER REPORT, PT IS GETTING A SERVICE DOG SOON, AND FAMILY IS BUILDING A NEW HOUSE WHICH WILL BE BETTER REGARDING ACCESSIBILITY, TO BE READY IN THE SPRING. PT REPORTEDLY HAS INTERMITTENT CONFUSION AT BASELINE AND THIS WORSENED WITH INFECTIOUS PROCESS. MOM REQUESTED THAT WE REPLACE HER TUBIGRIPS, AND THAT WE COMMUNICATE THE ISSUE WITH THE PATIENT'S RENAL STONE, THAT MOM IS CONTACTING THE FURNACE LINER REGARDING A PLAN TO HAVE THE STONE REMOVED IN ABOUT A WEEK. NM WILL COMMUNICATE THIS TO DR. JOVEL ET AL. ALSO, PER PT'S MOM'S REQUEST, A NOTE TABLET AND PEN HAS BEEN PLACED IN THE ROOM FOR THE PATIENT TO KEEP NOTES IF SHE NEEDS THIS.
--- NOTE | 2021-02-15 16:01 | NUR ---
Chart review. new on acute rehab yesterday afternoon. BPCI. Hx of Spinal bifida. Lives at home wit her mom, [facility] had home infusion in the past. will only use hh that has vaccinated staff. Has her own wheel chair. Support from her mom. Cm notified by unit nurse coin machine supervisor that she visited with her mom and is talking with nephrology r/t stone removal plan. Will cont following as needed for dc needs.
[2021-02-15 19:34] VITALS: BP 125/77
--- NOTE | 2021-02-16 02:13 | NUR ---
assumed care approx 1899 evening 02/15. pt lying in bed at change of shift alert and oriented x4. pt appropriate and cooperative stated she was tired from therapy. tubogrips to lower legs and feet bilaterally. pt took hs meds with water tolerating well. pt appears to be sleeping soundly. bed alarm on and call light in reach. will continue to monitor.
[2021-02-16 07:15] VITALS: BP 108/70
[2021-02-16 19:40] VITALS: BP 121/82
--- NOTE | 2021-02-17 01:50 | NUR ---
assumed care approx 1900 evening 02/16. pt lying in bed with head of bed elevated at change of shift resting and watching tv. pt alert and oriented x4, appropriate and cooperative. pt stated she had a good day with therapy and is tired. colostomy intact, catheter bag and urostomy bag intact. pt took hs meds with water tolerating well. pt appears to be sleeping soundly. bed alarm on and call light in reach. will continue to monitor.
--- NOTE | 2021-02-17 07:41 | NUR ---
ASSUMED CARE AT 0700. PATIENT IS ALERT AND ORIENTED X4. PATIENT HAS PARAPLEGIA IN HER LOWER EXTREMITIES. LUNGS ARE CLEAR AND DEMINISHED. ABD IS SOFT WITH BSX4. PATIENT HAS COLOSTOMY AND UROSTOMY THAT ARE INTACT. UP WITH 1 STAFF AND GAIT BELT TO CHAIR. PORTACATH IS INTACT. SITE WITHOUT REDNESS OR SWELLING. FALL AND SAFETY PROTOCOLS IN PLACE. DENIES PAIN AT THIS TIME. CONTINUES TO PROGRESS SLOWLY TOWARDS D/C GOALs. WILL CONTINUE TO MONITER.
[2021-02-17 08:00] VITALS: BP 107/72
[2021-02-17 19:41] VITALS: BP 110/72
--- NOTE | 2021-02-18 02:52 | NUR ---
Assumed pt care at 1900. A/OX4,VSS.tachy reports that's the baseline. C/o headache/backpain medicated with Rudolph with relief reported. Optifoam in place on coccyx,repositioned as tolorated,on envision RUPAL. Colostomy,urostomy/nephrostomy patent with adequate output. Port a cath patent on left chest. Fall precautions in place,resting quietly w/o any distress will continue to monitor pt. Medicated for nausea at HS with relief reported.
[2021-02-18 05:27] LABS: HEMATOCRIT 30.9 % (37.0-47.0); HEMOGLOBIN 9.8 gm/dL (12.0-15.0); MCH 23.8 pg (26.0-34.0); MCHC 31.6 g/dL (28.0-37.0); MCV 75.2 fL (80.0-100.0); RBC 4.11 mil/uL (4.20-5.00); RDW 23.1 % (10.5-14.5); WBC 7.7 thou/uL (4.0-11.0)
[2021-02-18 05:33] LABS: CALCIUM 8.7 mg/dL (8.5-10.1); CREATININE 0.5 mg/dL (0.6-1.0); MAGNESIUM 2.3 mg/dL (1.8-2.4); POTASSIUM 4.1 mmol/L (3.5-5.1)
[2021-02-18 09:51] VITALS: BP 97/62
--- NOTE | 2021-02-18 13:48 | NUR ---
Assumed care for Pt at shift change, [facility] A/Ox [facility], on RA meds given as scheduled but Pt preferes to have Gabapentin in evening , fair appetite, takes meds whole with water, c/o Nausea w/o vomiting, PRN Zofran given, Pt looks comfortable, Lidocain patch applied in lower back, Pt repositioned, assessment done and chatted. VSS, with her basline tachycardia (109 at this time), Labs reviewed, no new concerns. POC to be cont'd.
[2021-02-18 20:30] VITALS: BP 126/81
--- NOTE | 2021-02-19 02:17 | NUR ---
ASSUMED CARE OF PT AT 1915 ON 02/18/21. PT IS A&OX4. IS ON ROOM AIR. IS STABLE. REPORTS PAIN IN BACK & NANCE THAT IS BEING MANAGED WITH ORAL MEDS & OTHER THERAPUETIC TECHNQUES. HAS ULCERS IN COCCYX AREAS, 3 DRSG C/D/I. IS TURNED Q2H. HEELS OFF LOADED. TUBIGRIP ON BILAT LES. HAS HX OF SPINAL BIFIDA WITH PARAPLEGIA. ANTIFUNGAL MED APPLIED TO LEFT FOOT ORDERED. THIRD TOE TOENAIL IS NEARLY OFF. NO BLEEDING NOTED. NO PAIN REPORTED. HAS UROSTOMY, ILIOSTOMY, & COLOSTOMY. PT MAINTAINS WITH SOME ASSISTANCE NEEDED. PT CHANGED ENTIRE CONDUITS ON THIS SHIFT. OWN SUPPLIES IN ROOM. IS UP WITH SLIDE ASSIST, & GB TO WC. FALL PRECAUTION & HOURLY ROUNDING CONTINUED THIS SHIFT. LABS & VITALS REVIEWED. PT REPORTS SOME NAUSEA & REQUESTED ZOFRAN. PT IS CURRENTLY ASLEEP. CALL LIGHT WITHIN REACH. WILL CONTINUE TO MONITOR.
[2021-02-19 07:35] VITALS: BP 97/67
[2021-02-19 07:39] LABS: ABSOLUTE NEUTROPHILS 5.2 thou/uL (1.4-8.2); EOSINOPHILS 2.7 % (0.0-3.0); HEMATOCRIT 29.9 % (37.0-47.0); HEMOGLOBIN 9.2 gm/dL (12.0-15.0); LYMPHOCYTES 24.5 % (24.0-44.0); MCH 23.6 pg (26.0-34.0); MCHC 30.9 g/dL (28.0-37.0); MCV 76.3 fL (80.0-100.0); PLATELET COUNT 526 thou/uL (150-400); POLYS 60.8 % (36.0-66.0); RBC 3.91 mil/uL (4.20-5.00); RDW 24.1 % (10.5-14.5); WBC 8.5 thou/uL (4.0-11.0)
[2021-02-19 07:46] LABS: ALBUMIN 2.8 g/dL (3.4-5.0); CALCIUM 8.4 mg/dL (8.5-10.1); CREATININE 0.5 mg/dL (0.6-1.0); POTASSIUM 3.8 mmol/L (3.5-5.1); TOTAL BILIRUBIN 0.2 mg/dL (0.2-1.0); TOTAL PROTEIN 7.2 g/dL (6.4-8.2)
--- NOTE | 2021-02-19 10:52 | NUR ---
ASSUMED CARE FOR PT AT SHIFT CHANGE, A/O X 4, C/O DIZZINESS, CHRONIC HEADACHE( 08/28), BORDERLINE LOW GLYCEMIA, PT WAS ABLE TO GO TO RESTROOM USING FWW, GB, AND SBA, AFEBRILE , VSS, GOOD APPETITE, MOOD ADEQUATE, SATISFACTORY I/O'S, SLEPT, LABS REVIEWED, NO NEW CONCERNS, MEDS GIVEN PER ORDER, SWALLOWS PILLS WHOLE WITH WATER, PT LOOKS COMFORTABLE , ALL SAFETY PRECAUTIONS MAINTAINED. POC TO BE CONT'D.
--- NOTE | 2021-02-19 11:31 | NUR ---
PT CARE WAS ASSUMED AT SHIFT CHANGE, PT STATED THAT THE NIGHT WAS GREAT, NO C/O PAIN, LOOKS COMFORTABLE; ALL SATETY MEASURES MAINTAINED, LABS REVIEWED, NO NEW CONCERNS, ALL MEDS GIVEN PER ORDER, SWALLOWS PILLS WHOLE WITH WATER, PREFERS GABAPENTIN IN HS, WC DONE PER ORDER, HEALING PROCESS IN PROGRESS, NO NEW SKIN BREAKDOWN NOTED, MOOD IS STABLE, COLOSTOMY, UROSTOMY AND NEPROSTOMY TUBES ALL PATENT AND W/O COMPLICATION, WORKED SUCCESFULLY W/ PT/OT. ASSESSMENT DONE AND CHARTED. VSS WITH BASIC TACHYCARDIA ( 109 BEATS /MS). POC TO BE CONT'D
[2021-02-19 13:12] LABS: ANISOCYTOSIS 2+; HYPOCHROMASIA 1+
--- NOTE | 2021-02-19 14:00 | NUR ---
spoke with elliott mom who is needing help getting her daughter appointment and surgery елена with [facility] to have the stone removed, she is wanting the dr to talk about the plan. Severiano passed on information to carlo constantino to [facility] .
[2021-02-19 19:23] VITALS: BP 111/71
--- NOTE | 2021-02-20 01:24 | NUR ---
assumed care approx 1900 evening 02/19. pt lying in bed with head of bed elevated resting at change of shift. pt alert and oriented x4, pleasant and cooperative. colostomy, urostomy, and neprostomy intact. pt stated she was tired from therapy. pt took hs meds with water tolerating well. pt assisted with turning and repositioning. pt appears to be sleeping soundly at present. bed alarm on and call light in reach. will continue to monitor.
[2021-02-20 08:00] VITALS: BP 98/63
--- NOTE | 2021-02-20 11:10 | NUR ---
Assumed pt care at shift change, PT A/O X 4, ON RA , STATED THAT SHE DID'T SLEEP WELL, ASSESSMENT DONE AT BEDSIDE AND CHARTED, vss, LABS REVIEWED, MEDS GIVEN SCHEDULED, PT TAKES PILLS WHOLE WITH WATER, UROSTOMY AND NEPHROSTOMY TUBES INTACT, URINARY COLLECTING BAG REMOVED, REDNESS NOTED IN THE COCCYX AREA, NEW DRESING APPLIED, pT APPEARS COMFORTABLE AND SAFE , ALL SAFTEY MEASURES MAINTAINED, AFEBRILE, MOOD AND APPETITE ADEQUATE, WILL CONT' MONITORING FOR CHANGE.
--- NOTE | 2021-02-20 12:33 | NUR ---
Team meeting, recommendation: hx or depression and anxiety. can manage her own ostomy. using her own briefs today. part mod assist for transfers to manage her lower extremities. has her own wheelchair. Cm spoke with her mom yesterday and passed on information to hospitalist the number for dr Sy Rosario [phone], to have to talk to each other about the stone removal that needs to be removed. BPCI, dc 02/[address] [facility] (pt, ot, nursing).
[2021-02-20 19:07] VITALS: BP 114/78
--- NOTE | 2021-02-21 01:56 | NUR ---
ASSUMED CARE APPROX 1900 EVENING 02/20. PT ALERT AND ORIENTED X4, APPROPRIATE AND COOPERATIVE. PT STATED SHE HAD A BUSY DAY WITH THERAPY. COLOSTOMY, NEPHROSTOMY, AND UROSTOMY INTACT. PT TOOK HS MEDS WITH WATER TOLERATING WELL. PT APPEARS TO BE SLEEPING SOUNDLY. BED ALARM ON AND CALL LIGHT IN REACH. WILL CONTINUE TO MONITOR.
--- NOTE | 2021-02-21 10:02 | NUR ---
ASSUMED CARE AT 0700. PATIENT IS ALERT AND ORIENTED X4. PATIENT HAS PARAPLEGIA IN HIS LOWER EXTREMITIES. LUNGS ARE CLEAR AND DEMINISHED. ABD IS SOFT WITH BSX4. PATIENT HAS ILEOSTOMY, NEPHROSTOMY, AND COLOSTOMY. PATIENT IS UP TO THE W/C WITH ASSIST OF 1 STAFF AND GAIT BELT. FALL AND SAFETY PROTOCOLS IN PLACEW. C/O OCCASIONAL H.A. MEDICATED WITH PRN PAIN MED. CONTINUES TO PROGRESS TOWARDS D/C GOALS. WILL CONTINUE TO MONITER.
--- NOTE | 2021-02-21 10:24 | NUR ---
Nutrition: at follow up recent intake 66% avg, Ensure ordered BID. No new wt since initial assessement. Albumin 2.8, Cr 0.5. Meds: folic acid, vit D, probiotic, KCl, MVI, iron. Continues with pressure wound on coccyx. Last charted BM 02/18. Per notes, plan is for discharge 02/23. Continues at low- mild nutition risk, continue POC.
[2021-02-21 19:55] VITALS: BP 122/75
--- NOTE | 2021-02-22 05:31 | NUR ---
ASSUMED CARE AT 1930 OF 02/21. PATIENT IS A&OX4, REPORTED LOWER BACK PAIN AND A HEADACHE, PRN HYDROCODONE ADMINISTERED PER PATIENT REQUEST. PATIENT ALSO REPORTED NAUSEA, AND PRN ZOFRAN ADMINISTERED. UROSTOMY, NEPHROSTOMY AND COLOSTOMY IN PLACE AND INTACT. LEFT CHEST PORTACATH IN PLACE, DRESSING IS CDI AND LINE IS PATENT. ASSISTED WITH REPOSITIONING. SACRAL WOUND OPTIFOAM DRESSINGS ARE IN PLACE AND INTACT. FALL PRECAUTIONS IN PLACE, CALL LIGHT WITHIN REACH. WILL CONTINUE TO MONITOR.
--- NOTE | 2021-02-22 06:54 | NUR ---
patient refusing therapy can we change to prn
[2021-02-22 09:29] VITALS: BP 104/64
--- NOTE | 2021-02-22 10:50 | NUR ---
ASSUMED CARE AT 0700. PATIENT IS ALERT AND ORIENTED X4. PATIENT IS PARAPLEGIC TO HER LOWER EXTREMITIES. PATIENT MOVES UPPER EXTREMITIES WITHOUT DIFFICULTY. PATIENT IS SLIDE FROM BED TO W/C. PATIENT ABD IS SOFT WITH BSX4. PATIENT HAS COLOSTOMY THAT IS INTACT. PATIENT HAS ILEOSTOMY, AND NEPHROSTOMY THAT IS DRAINING SALVADOR COLORED URINE. DRESSING CHANGES TO HER BOTTOM COMPLETED. PORTACATH IS ACCESSED WITH S.L. PORTACATH FLUSHES WELL. TOES PAINTED WITH ANTIFUNGAL CREAM. FALL AND SAFETY PROTOCOLS IN PLACE. C/O LEFT LOWER BACK PAIN. MEDICATED WITH LIDODERM PATCH. CONTINUES TO PROGRESS TOWARDS D/C GOALS. CALL LIGHT IN REACH. WILL CONTINUE TO MONITER.
[2021-02-22 19:16] VITALS: BP 100/67
--- NOTE | 2021-02-23 04:50 | NUR ---
ASSUMED CARE AT 1900 OF 02/22. PATIENT IS A&OX4, REPORTS LOOKING FORWARD TO D/C IN AM. COLOSTOMY REDRESSED AND BAG REPLACED BY PATIENT USING PERSONAL SUPPLIES, SET UP AND CLEAN UP ASSIST PROVIDED. UROSTOMY AND RIGHT NEPHROSTOMY TUBE INTACT AND IN PLACE, BOTH ARE DRAINING CLEAR YELLOW URINE, WITH NOTED SEDIMENTS. PATIENT REPORTS LOWER BACK PAIN AND NAUSEA, PRN PAIN MEDICATION AND ANTINAUSEA MEDICATION ADMINISTERED. ASSISTED WITH REPOSITIONING. LEFT CHEST ACCESSED PORTACATH IS PATENT AND SALINE LOCKED. DRESSING IS CDI. SACRAL DRESSING ARE IN PLACE AND INTACT. TUBIGRIPS ON BILATERAL LOWER EXTREMITIES. FALL PRECAUTIONS IN PLACE, CALL LIGHT WITHIN REACH. WILL CONTINUE TO MONITOR.
[2021-02-23 06:25] LABS: ABSOLUTE NEUTROPHILS 3.4 thou/uL (1.4-8.2); EOSINOPHILS 3.1 % (0.0-3.0); HEMATOCRIT 27.1 % (37.0-47.0); HEMOGLOBIN 8.5 gm/dL (12.0-15.0); LYMPHOCYTES 29.5 % (24.0-44.0); MCH 24.7 pg (26.0-34.0); MCHC 31.5 g/dL (28.0-37.0); MCV 78.4 fL (80.0-100.0); MONOCYTES 11.6 % (1.0-8.0); PLATELET COUNT 490 thou/uL (150-400); POLYS 53.8 % (36.0-66.0); RBC 3.45 mil/uL (4.20-5.00); RDW 27.7 % (10.5-14.5); WBC 6.4 thou/uL (4.0-11.0)
[2021-02-23 07:06] LABS: CALCIUM 8.1 mg/dL (8.5-10.1); CREATININE 0.4 mg/dL (0.6-1.0); MAGNESIUM 2.2 mg/dL (1.8-2.4); POTASSIUM 3.7 mmol/L (3.5-5.1)
[2021-02-23 07:38] VITALS: BP 100/67
--- NOTE | 2021-02-23 07:39 | NUR ---
Ok home today with [facility] ( pt, ot, and nursing). [facility]. [facility] [place].
[2021-02-23 08:00] VITALS: BP 101/67
[2021-02-23] MEDS ORDERED: BUTALB-APAP-CA1 EACH PO (08:27)
[2021-02-23] MEDS ORDERED: IRON325 PO (08:29)
[2021-02-23] MEDS ORDERED: GABAPENTIN 100100 MG PO (08:29)
[2021-02-23] MEDS ORDERED: CALCIUM 500 +1 EAC5 PO (08:29)
[2021-02-23] MEDS ORDERED: LOPERAMIDE 2 MG2 M1 PO (08:29)
[2021-02-23] MEDS ORDERED: FOLIC ACID1 MG PO (08:29)
[2021-02-23] MEDS ORDERED: AMOXICILLIN 50500 MG PO (08:29)
[2021-02-23] MEDS ORDERED: DILTIAZEM 24HR300 M2 PO (08:29)
[2021-02-23] MEDS ORDERED: VITAMIN D350 MCG PO (08:33)
[2021-02-23] MEDS ORDERED: HYDROCODON-ACE1 EAC7 PO (10:24)
[2021-02-23 10:40] VITALS: BP 100/67
[2021-02-23 11:33] VITALS: BP 100/67
--- NOTE | 2021-02-26 07:01 | HC ---
[facility] [place] [address] CONSULTATION Name: JEFE DIAZ Room #: 506-[address] [facility] M.R.#: [id number] Admission: 02/14/21 Attend Phys: Sam Palomo MD Discharge: 02/23/21 Date of : 76 Report #: [id number] THIS REPORT FOR: cc: Ga Nowak MD, Daniel J. MD Deutch, Neal B. PhD ~ DATE OF SERVICE: 02/17/2021 NEUROPSYCHOLOGICAL CONSULTATION ATTENDING PHYSICIAN: Sam Palomo M.D. WEB PORTAL DEVELOPER: Lemuel Gresham, Ph.D. CLINICAL PRESENTATION: The patient is a 40-year-old female admitted to the rehabilitation unit with a diagnosis of spina bifida with paraplegia. She carries a diagnosis of urinary sepsis, right hydronephrosis with right ureteral calculus, status post nephrostomy tube on 02/08/2021, diverting colostomy, anemia, diversion colitis, depression, PCM, asthma, migraine headaches history and hypertension. A complete description of her medical condition and history can be found in her medical record. Neuropsychological consultation was requested to provide assistance in the assessment of cognitive and emotional status and to provide recommendations and services. Prior to this most recent medical event, she was living at home with her mother. She reports having had a very bad urinary tract infection prior to her admission. She is a high school graduate and on disability. A prior history of counseling for depression to assist with adjustment. Social support system is reported as good. TECHNIQUES UTILIZED: Clinical interview, review of medical records, staff consultation and behavioral observation, mini mental status exam 2 standard version and clock drawing. EXAMINATION FINDINGS: The patient was alert and cooperative with the assessment. She accurately described events surrounding her admission. There is no evidence of aphasia. Her thoughts are logical and goal oriented. There is no evidence of thought disorder. She does not report auditory or visual hallucinations. Her symptoms include sleep disturbance because of back pain, anxiety, subjective depression. She does not report difficulty with appetite, memory or word finding. Her mother had been helping with aspects of basic and instrumental activities of daily living. Performance on the MMSE-2 brief version is within normal limits with a raw score 16 of 16. Performance on the MMSE-2 standard version is within normal limits with a raw score of 27/30. She was 3/5 for serial sevens, 2/2 for naming, 04/[address] [address] CONSULTATION Name: JEFE DIAZ Room #: 506-[address] [facility] [place] [facility].#: [id number] Admission: 02/14/21 Attend Phys: Sam Palomo MD Discharge: 02/23/21 Date of : 76 Report #: [id number] for repetition, 3/3 for auditory comprehension. She could read and follow a single command and write a sentence. The patient had some difficulty with copying a simple geometric design. Clock drawing was satisfactory. However, visual spatial construction was slightly off. The patient is alert and oriented with some mild difficulty in attention and concentration. Increased anxiety is associated with her medical condition and her concern about her wellbeing. Pain appears to be disruptive to sleep. DIAGNOSTIC IMPRESSION: Adjustment disorder with anxious mood. RECOMMENDATIONS: The patient may benefit from ongoing psychological counseling to assist in overall adjustment. The use of relaxation techniques may also be helpful in the management of anxiety. As she increases her level of independence, her anxiety will likely diminish and sense of self confidence will return. Thank you very much for allowing me to provide the consultation on this patient. <ELECTRONICALLY SIGNED> By: Lemuel Gresham, PhD 02/26/21 0701 1623 Lemuel Gresham, PhD /nt
== END 2021-02-23 18:15 | disposition home health service (06) | DRG 52 ==
LOC: ADMC 14:29
PROVIDERS: Internal Medicine; Nurse Practitioner; Specialist; ADMIT Physical Medicine & Rehabilitation; ATTEND Physical Medicine & Rehabilitation
DX: G82.20 Paraplegia, unspecified (principal); L89.153 Pressure ulcer of sacral region, stage 3; E43 Unspecified severe protein-calorie malnutrition; N13.6 Pyonephrosis; F84.5 Asperger's syndrome; R53.81 Other malaise; G43.909 Migraine, unspecified, not intractable, without status migrainosus; K52.89 Other specified noninfective gastroenteritis and colitis; F32.9 Major depressive disorder, single episode, unspecified; J45.909 Unspecified asthma, uncomplicated; F43.22 Adjustment disorder with anxiety; G40.909 Epilepsy, unspecified, not intractable, without status epilepticus; E87.6 Hypokalemia; B95.2 Enterococcus as the cause of diseases classified elsewhere; D50.9 Iron deficiency anemia, unspecified; S30.0XXA Contusion of lower back and pelvis, initial encounter; E55.9 Vitamin D deficiency, unspecified; Q05.9 Spina bifida, unspecified; Z68.26 Body mass index [BMI] 26.0-26.9, adult; Z88.1 Allergy status to other antibiotic agents; Z91.040 Latex allergy status; Z86.14 Personal history of Methicillin resistant Staphylococcus aureus infection; Z93.50 Unspecified cystostomy status
CPT/HCPCS: 10112

== ENCOUNTER 2021-03-14 10:41 | Emergency (ER) | payer OTHER ==
[~2021-03-14] VITALS: Ht 142.2 cm; Wt 54.4 kg
[~2021-03-14 10:41] MED LIST changes: +AMOXICILLIN 50500 MG PO; +BUTALB-APAP-CA1 EACH PO; +CALCIUM 500 +1 EAC5 PO; +DILTIAZEM 24HR300 M2 PO; +FOLIC ACID1 MG PO; +HYDROCODON-ACE1 EAC7 PO; +LOPERAMIDE 2 MG2 M1 PO; +VITAMIN D350 MCG PO
[2021-03-14 11:34] LABS: ABSOLUTE NEUTROPHILS 2.6 thou/uL (1.4-8.2); BASOPHILS 1.2 % (0.0-2.0); HEMATOCRIT 31.3 % (37.0-47.0); HEMOGLOBIN 9.9 gm/dL (12.0-15.0); LYMPHOCYTES 15.6 % (24.0-44.0); MCH 26.1 pg (26.0-34.0); MCHC 31.8 g/dL (28.0-37.0); MCV 82.2 fL (80.0-100.0); MONOCYTES 18.8 % (1.0-8.0); PLATELET COUNT 242 thou/uL (150-400); POLYS 62.4 % (36.0-66.0); RDW 27.1 % (10.5-14.5); WBC 4.1 thou/uL (4.0-11.0)
[2021-03-14 12:24] LABS: ANION GAP 11 mmol/L (7-16); BUN 11 mg/dL (7-18); CALCIUM 7.8 mg/dL (8.5-10.1); CHLORIDE 108 mmol/L (98-107); CO2 18 mmol/L (21-32); CREATININE 0.4 mg/dL (0.6-1.0); GLUCOSE 95 mg/dL (74-106); POTASSIUM 3.3 mmol/L (3.5-5.1); SODIUM 137 mmol/L (136-145)
[2021-03-14 12:33] LABS: ALBUMIN 2.9 g/dL (3.4-5.0); SGOT 23 U/L (15-37); SGPT 13 U/L (14-59); TOTAL BILIRUBIN 0.1 mg/dL (0.2-1.0); TOTAL PROTEIN 6.9 g/dL (6.4-8.2)
[2021-03-14 12:34] LABS: URINE BILIRUBIN NEGATIVE (Negative); URINE BLOOD 3+ (Negative); URINE CLARITY CLOUDY; URINE COLOR YELLOW; URINE GLUCOSE-RANDOM* NEGATIVE (Negative); URINE KETONES NEGATIVE (Negative); URINE NITRITE-REFLEX NEGATIVE (Negative); URINE PROTEIN (DIPSTICK) 2+ (Negative); URINE SPECIFIC GRAVITY >= 1.030 (1.005-1.035); URINE UROBILINOGEN 0.2 E.U./dl (0.2-1.0)
[2021-03-14 12:44] LABS: URINE LEUKOCYTES-REFLEX 2+ (Negative)
[2021-03-14 12:48] LABS: CASTS None Seen /LPF (None Seen); SQUAMOUS 0-3 Few /LPF (0-3)
[2021-03-14 12:49] LABS: CRYSTALS None Seen /LPF (None Seen); URINE RBC 3-10 Few /HPF (NONE SEEN); URINE WBC-REFLEX 6-15 Few /HPF (0-5)
[2021-03-14] MEDS ORDERED: CEFDINIR300 MG PO (15:19)
[2021-03-14 15:22] VITALS: BP 114/72
[2021-03-14 15:56] LABS: URINE BILIRUBIN NEGATIVE (Negative); URINE BLOOD 3+ (Negative); URINE CLARITY SL CLOUDY; URINE COLOR YELLOW; URINE GLUCOSE-RANDOM* NEGATIVE (Negative); URINE KETONES 1+ (Negative); URINE NITRITE-REFLEX NEGATIVE (Negative); URINE PROTEIN (DIPSTICK) TRACE (Negative); URINE SPECIFIC GRAVITY 1.015 (1.005-1.035); URINE UROBILINOGEN 0.2 E.U./dl (0.2-1.0)
[2021-03-14 16:01] LABS: URINE LEUKOCYTES-REFLEX 1+ (Negative)
[2021-03-14 16:14] LABS: BACTERIA-REFLEX 1-9 Few /HPF (None Seen); CASTS None Seen /LPF (None Seen); CRYSTALS None Seen /LPF (None Seen); SQUAMOUS 0-3 Few /LPF (0-3); URINE RBC 3-10 Few /HPF (NONE SEEN); URINE WBC-REFLEX 6-15 Few /HPF (0-5)
== END 2021-03-14 15:43 | disposition home or self-care (01) ==
LOC: ER 10:41
PROVIDERS: Physician Assistant
DX: N39.0 Urinary tract infection, site not specified (principal); Z20.822 Contact with and (suspected) exposure to COVID-19; I10 Essential (primary) hypertension; J45.909 Unspecified asthma, uncomplicated; Z79.899 Other long term (current) drug therapy; Z91.040 Latex allergy status; Z88.1 Allergy status to other antibiotic agents

== ENCOUNTER → 2021-04-11 | Outpatient (CLI) | payer OTHER ==
[~2021-04-11] MED LIST changes: +CEFDINIR300 MG PO
[2021-04-11 11:20] VITALS: BP 138/95
--- NOTE | 2021-04-11 11:30 | NUR ---
HERE FOR PORT MAINTENANCE--ROUTINE FLUSH, AND CENTRAL LINE LAB DRAW. PT HAS BEEN IN AND OUT OF THE HOSPITAL, ED, OR FOR HIS RECENT UTI, SEPSIS, KIDNEY STONE AND KIDNEY STONE REMOVAL. ALL IN ALL, REPORTS FEELING BETTER AND HAS NO CONCERNS AT THIS TIME. [facility] JUST DISMISSED HER YESTERDAY. FOLLOWING UP WITH HER PCP AND DR. GOMEZ DIRECTED. PORT ACCESSED WITHOUT DIFFICULTY, BRISK BLOOD RETURN, LABS DRAWN. PORT FLUSHED POST LAB DRAW AND DEACCESSED. PT DISMISSED IN STABLE CONDITION. SCHEDULED TO RETURN AGAIN ON 05/15/20.
[2021-04-11 12:20] LABS: ABSOLUTE NEUTROPHILS 4.3 thou/uL (1.4-8.2); BASOPHILS 0.6 % (0.0-2.0); EOSINOPHILS 2.7 % (0.0-3.0); HEMATOCRIT 32.6 % (37.0-47.0); HEMOGLOBIN 10.2 gm/dL (12.0-15.0); LYMPHOCYTES 20.8 % (24.0-44.0); MCH 25.9 pg (26.0-34.0); MCHC 31.3 g/dL (28.0-37.0); MCV 82.6 fL (80.0-100.0); MONOCYTES 9.2 % (1.0-8.0); PLATELET COUNT 456 thou/uL (150-400); POLYS 66.7 % (36.0-66.0); RBC 3.95 mil/uL (4.20-5.00); RDW 21.6 % (10.5-14.5); WBC 6.4 thou/uL (4.0-11.0)
[2021-04-11 12:38] LABS: ALBUMIN 3.5 g/dL (3.4-5.0); CALCIUM 8.7 mg/dL (8.5-10.1); CREATININE 0.6 mg/dL (0.6-1.0); POTASSIUM 3.8 mmol/L (3.5-5.1); TOTAL BILIRUBIN 0.1 mg/dL (0.2-1.0); TOTAL PROTEIN 7.8 g/dL (6.4-8.2)
[2021-04-11 15:12] LABS: ANISOCYTOSIS 2+
[2021-04-11 15:13] LABS: MACROCYTES 1+; MICROCYTES 1+; POLYCHROMASIA OCCASIONAL
== END ==
LOC: OPONC 15:09
PROVIDERS: ATTEND Specialist
DX: Z45.2 Encounter for adjustment and management of vascular access device (principal); Q05.9 Spina bifida, unspecified

== ENCOUNTER → 2021-05-16 | Outpatient (CLI) | payer OTHER ==
[2021-05-16 11:44] VITALS: BP 113/74
--- NOTE | 2021-05-16 11:45 | NUR ---
HERE FOR MONTHLY PORT FLUSH/MAINTENANCE AND LAB DRAW. REPORTS DOING WELL BUT ALWAYS MANAGING A LOW GRADE UTI AND KEEPS IN CONTACT WITH DR. GOMEZ. PORT ACCESSED WITH EASE, BRISK BLOOD RETURN OBTAINED. LABS DRAWN. FLUSHED WELL WITH 20ML NS THEN HEP FLUSH PRIOR TO DEACCESS. PT DISMISSED IN STABLE CONDITION. SCHEDULED TO RETURN AGAIN IN 4 WEEKS.
[2021-05-16 11:48] LABS: ABSOLUTE NEUTROPHILS 4.8 thou/uL (1.4-8.2); BASOPHILS 0.8 % (0.0-2.0); EOSINOPHILS 2.5 % (0.0-3.0); HEMATOCRIT 31.9 % (37.0-47.0); HEMOGLOBIN 10.1 gm/dL (12.0-15.0); LYMPHOCYTES 18.3 % (24.0-44.0); MCH 25.5 pg (26.0-34.0); MCHC 31.7 g/dL (28.0-37.0); MCV 80.7 fL (80.0-100.0); MONOCYTES 10.1 % (1.0-8.0); PLATELET COUNT 421 thou/uL (150-400); POLYS 68.3 % (36.0-66.0); RBC 3.95 mil/uL (4.20-5.00); RDW 17.2 % (10.5-14.5)
[2021-05-16 12:22] LABS: ALBUMIN 3.3 g/dL (3.4-5.0); CALCIUM 8.8 mg/dL (8.5-10.1); CREATININE 0.4 mg/dL (0.6-1.0); POTASSIUM 3.6 mmol/L (3.5-5.1); TOTAL BILIRUBIN 0.2 mg/dL (0.2-1.0); TOTAL PROTEIN 7.6 g/dL (6.4-8.2)
== END ==
LOC: OPONC 09:31
PROVIDERS: ATTEND Specialist
DX: N39.0 Urinary tract infection, site not specified (principal)

== ENCOUNTER → 2021-06-13 | Outpatient (CLI) | payer OTHER ==
[2021-06-13 11:00] VITALS: BP 114/72
--- NOTE | 2021-06-13 11:15 | NUR ---
HERE FOR MONTHLY PORT FLUSH AND LABS. PORT ACCESSED WITHOUT DIFFICULTY, EXCELLENT BLOOD RETURN OBTAINED, LABS DRAWN, PORT FLUSHED WITH 20ML NS THEN HEP FLUSH, DEACCESSED. PT REPORTS DOING WELL, LOOKS WELL. NO CONCERNS NOTED. DISMISSED IN STABLE CONDITION. SCHEDULED TO RETURN AGAIN IN 4 WEEKS.
[2021-06-13 11:40] LABS: HEMATOCRIT 31.8 % (37.0-47.0); HEMOGLOBIN 10.1 gm/dL (12.0-15.0); MCH 24.6 pg (26.0-34.0); MCHC 31.7 g/dL (28.0-37.0); MCV 77.5 fL (80.0-100.0); PLATELET COUNT 422 thou/uL (150-400); RDW 15.7 % (10.5-14.5)
[2021-06-13 11:55] LABS: ALBUMIN 3.4 g/dL (3.4-5.0); ANION GAP 12 mmol/L (7-16); BUN 13 mg/dL (7-18); CALCIUM 8.5 mg/dL (8.5-10.1); CHLORIDE 106 mmol/L (98-107); CO2 24 mmol/L (21-32); CREATININE 0.4 mg/dL (0.6-1.0); GLUCOSE 123 mg/dL (74-106); POTASSIUM 3.4 mmol/L (3.5-5.1); SGOT 11 U/L (15-37); SGPT 15 U/L (30-65); SODIUM 142 mmol/L (136-145); TOTAL BILIRUBIN < 0.1 mg/dL (0.2-1.0); TOTAL PROTEIN 7.5 g/dL (6.4-8.2)
[2021-06-13 16:41] LABS: BASOPHILS 0.9 % (0.0-2.0); EOSINOPHILS 2.4 % (0.0-3.0); LYMPHOCYTES 25.4 % (24.0-44.0); MONOCYTES 10.2 % (1.0-8.0); POLYS 61.1 % (36.0-66.0)
== END ==
LOC: OPONC 12:00
PROVIDERS: ATTEND Specialist
DX: N39.0 Urinary tract infection, site not specified (principal)